=== PATIENT | male | born 1980 | race Caucasian/White ===

== ENCOUNTER 2020-07-19 14:40 | Outpatient (CLI) | payer BC | END 2020-07-19 23:59 | disposition home or self-care (01) | LOC: LAB.R 14:40 | PROVIDERS: ATTEND Physician Assistant Medical | DX: A09 Infectious gastroenteritis and colitis, unspecified (principal) | CPT/HCPCS: 81599; 87045; 87046; 87177; 87209; 87329; 87427 ==

== ENCOUNTER 2022-12-30 13:06 | Inpatient (IN) | payer BC ==
--- NOTE | 2022-12-30 13:16 | ED Physician Documentation ---
PD HPI DYSPNEA - Stated complaint Stated Complaint: SOA - Chief complaint Chief Complaint: Resp - History obtained from History obtained from: Patient - History of Present Illness Timing - onset: How many days ago (3-4) Timing - onset during: Light activity Timing - duration: Days (3-4) Timing - details: Abrupt onset Inciting event(s): Immobilization/travel (He actually had been on a flight from [facility] to [place] with a layover in [facility] about 2 weeks ago. No leg swelling pains or problems immediately after arrival.), Other (he denies any trauma or blunt injury to chest.). No: Out of meds, URI Improved by: Rest Worsened by: Exertion Associated symptoms: Chest pain / discomfort (right chest). No: Fever, Cough, Wheezing, Bilateral edema Similar symptoms before: Has not had sx before Recently seen: Not recently seen Review of Systems Constitutional: denies: Fever, Chills Nose: denies: Rhinorrhea / runny nose, Congestion Throat: denies: Sore throat Cardiac: reports: Chest pain / pressure. denies: Palpitations, Pedal edema Respiratory: reports: Dyspnea. denies: Cough, Hemoptysis, Wheezing GI: denies: Abdominal Pain, Nausea, Vomiting, Diarrhea Skin: denies: Abrasion (s), Laceration (s) PD PAST MEDICAL HISTORY - Past Medical History Cardiovascular: None Respiratory: None Neuro: None Endocrine/Autoimmune: None - Allergies Allergies/Adverse Reactions: Allergies Allergy/AdvReac Type Severity Reaction Status Date / Time No Known Drug Allergies Allergy Verified 12/30/22 13:14 PD ED PE NORMAL - Vitals Vital signs reviewed: Yes - General General: Alert and oriented X 3, No acute distress (He does have purposeful breathing and does appear uncomfortable with deeper breathing but otherwise able to talk in full sentences.), Well developed/nourished - HEENT HEENT: Pharynx benign - Neck Neck: Supple, no meningeal sign, No adenopathy - Cardiac Cardiac: RRR, No murmur - Respiratory Respiratory: No respiratory distress. No: Clear bilaterally (No wheezing or coarse sounds. There is diminished breath sounds on the right. Still present some in the base.) - Abdomen Abdomen: Soft, Non tender - Derm Derm: Normal color, Warm and dry - Extremities Extremities: No edema, No calf tenderness / cord - Neuro Neuro: Alert and oriented X 3, No motor deficit, Normal speech Eye Opening: Spontaneous Motor: Obeys Commands Verbal: Oriented GCS Score: 15 Results - Vitals Vitals: Vital Signs - 24 hr 12/30/22 12/30/22 12/30/22 13:09 13:14 13:44 Temperature 36.8 C 36.8 C Heart Rate 91 91 88 Respiratory 22 22 24 Rate Blood Pressure 157/113 H 157/113 H 120/79 O2 Saturation 99 99 100 12/30/22 12/30/22 12/30/22 14:14 14:30 15:00 Temperature Heart Rate 86 84 72 Respiratory 14 24 22 Rate Blood Pressure 140/92 H 143/94 H 111/86 H O2 Saturation 96 98 100 12/30/22 12/30/22 12/30/22 15:30 16:00 16:30 Temperature 36.5 C Heart Rate 71 67 64 Respiratory 14 12 14 Rate Blood Pressure 135/86 H 129/76 148/88 H O2 Saturation 100 99 100 12/30/22 12/30/22 12/30/22 17:00 17:30 18:00 Temperature 36.5 C Heart Rate 60 56 L 53 L Respiratory 12 12 17 Rate Blood Pressure 144/88 H 139/85 H 116/92 H O2 Saturation 100 99 99 12/30/22 18:30 Temperature Heart Rate 56 L Respiratory 24 Rate Blood Pressure 137/76 H O2 Saturation 99 Oxygen O2 Source Room air - EKG (time done) 13:36 EKG releavant findings:: EKG personally interpreted by author of this note. Relevant findings are: Rate: Rate (enter#) (83) Rhythm: NSR Robbins: Normal Intervals: Normal NM QRS: Normal Ischemia: Normal ST segments. No: ST elevation c/w ischemia, ST depression - Labs Labs: Laboratory Tests 12/30/22 12/30/22 12/30/22 14:00 14:00 14:00 WBC 7.4 RBC 5.18 Hgb 15.9 Hct 46.4 MCV 89.6 MCH 30.7 MCHC 34.3 RDW 12.3 Plt Count 251 MPV 10.7 Neut # (Auto) 4.5 Lymph # (Auto) 1.9 [place] # (Auto) 0.5 Eos # (Auto) 0.4 Baso # (Auto) 0.1 Absolute Nucleated RBC 0.00 Nucleated RBC % 0.0 D-Dimer < 200.0 L Sodium Potassium Chloride Carbon Dioxide Anion Gap BUN Creatinine Estimated GFR (MDRD) Glucose Calcium Total Bilirubin AST ALT Alkaline Phosphatase Troponin I High Sens B-Natriuretic Peptide 13 Total Protein Albumin Globulin Albumin/Globulin Ratio Lipase 12/30/22 12/30/22 14:00 14:00 WBC RBC Hgb Hct MCV MCH MCHC RDW Plt Count MPV Neut # (Auto) Lymph # (Auto) [place] # (Auto) Eos # (Auto) Baso # (Auto) Absolute Nucleated RBC Nucleated RBC % D-Dimer Sodium 140 Potassium 4.0 Chloride 106 Carbon Dioxide 26 Anion Gap 8.0 BUN 15 Creatinine 1.1 Estimated GFR (MDRD) 74 L Glucose 106 H Calcium 9.5 Total Bilirubin 1.2 H AST 23 ALT 21 Alkaline Phosphatase 55 Troponin I High Sens < 2.3 L B-Natriuretic Peptide Total Protein 8.0 Albumin 4.8 Globulin 3.2 Albumin/Globulin Ratio 1.5 Lipase 32 - Rads (name of study) chest xray Relevant Findings:: Prelim report reviewed, EMP independent interpretation of test (Large pneumothorax on the right without any mediastinal shift.), See rad report Procedures - Chest Tube (location) - Major right 5th Chest tube preparation: Consent obtained, Time out completed, Sterile prep and drape Chest tube location: Right, Intercostal space - enter (5), Anterior axillary line Chest tube anesthesia: Lidocaine, Marcaine Chest tube size: 13 Chest tube return: Air, Connected to suction Chest tube after care: Sutured, Confirmed with xray, Pt tolerated well PD Medical Decision Making - ED course Complexity details: considered differential, d/w patient ED course: The patient has had several days of right-sided chest pain and dyspnea. It does seem to be worsening. No injury. No recent cold or flu or cough. He had flown about 1 and half weeks ago from [place] but does not have calf pain or tenderness. We will assess a D-dimer as well as troponin. He does have diminished breath sounds on the right so chest x-ray will be done. This was done and showed a significant pneumothorax. The patient is stable with good saturations and heart rate and blood pressure. Therefore I did consult surgery to give them the first choice on procedure. Dr. Olea was going into the OR and asked that I place a chest tube of small caliber. He will consult on the patient. The chest tube was placed in chest x-ray soon after x-ray showed a good improvement on the pneumothorax already. Subsequently I did contact Dr. Olea again and he was still in the OR and will see the patient. He did ask if the hospitalist service would admit the patient. I checked with the hospitalist and they said it given the health otherwise of the patient that it should be a surgical service patient. We are short on beds for the hospital. We are still awaiting surgical consult in regard to timing of repeat x-ray in stopping suction and etc. I ordered periodic as needed pain medicine and anti-inflammatories. The patient is remaining comfortable. Departure - Departure Clinical Impression: Spontaneous pneumothorax, Dyspnea, Chest pain Condition: Stable Record reviewed to determine appropriate education?: Yes Instructions: ED Pneumothorax Spontaneous
[2022-12-30] MEDS ORDERED: KETOROLAC 15 MG/ML VIAL IVP STA (13:33)
[2022-12-30 14:06] LABS: BASOPHILS # (AUTO) 0.1 10^3/uL (0.0-0.1); BASOPHILS % (AUTO) 1.1 %; EOSINOPHILS # (AUTO) 0.4 10^3/uL (0.0-0.7); EOSINOPHILS % (AUTO) 5.9 %; HCT - HEMATOCRIT 46.4 % (42.0-52.0); HGB - HEMOGLOBIN 15.9 g/dL (14.0-18.0); LYMPHOCYTES # (AUTO) 1.9 10^3/uL (1.5-3.5); LYMPHOCYTES % (AUTO) 25.1 %; MEAN CORPUSCULAR HEMOGLOBIN 30.7 pg (27.0-31.0); MEAN CORPUSCULAR HGB CONC 34.3 g/dL (32.0-36.0); MEAN CORPUSCULAR VOLUME 89.6 fL (80.0-94.0); MEAN PLATELET VOLUME 10.7 fL (7.4-11.4); MONOCYTES # (AUTO) 0.5 10^3/uL (0.0-1.0); NEUTROPHILS # (AUTO) 4.5 10^3/uL (1.5-6.6); NEUTROPHILS % (AUTO) 60.6 %; PLT - PLATELET COUNT 251 10^3/uL (130-450); RED BLOOD COUNT 5.18 10^6/uL (4.70-6.10); RED CELL DISTRIBUTION WIDTH 12.3 % (12.0-15.0); WHITE BLOOD COUNT 7.4 x10^3/uL (4.8-10.8)
[2022-12-30] MEDS ORDERED: HYDROmorphone 1 MG/ML CARPUJECT IVP STA ×2 (14:09→15:24)
--- NOTE | 2022-12-30 14:15 | XRAY Report ---
PROCEDURE: Chest 1 View X-Ray INDICATIONS: Chest Pain right; dyspnea TECHNIQUE: One view of the chest was acquired. COMPARISON: None. FINDINGS: Surgical changes and devices: None. Lungs and pleura: There is a larger pneumothorax in the right hemithorax. The right lung is largely collapsed. No mediastinal shift to suggest development tension. No pleural effusions. Left lung is cl ear clear. Mediastinum: Mediastinal contours appear normal. Heart size is normal. Bones and chest wall: No suspicious bony lesions. Overlying soft tissues appear unremarkable. IMPRESSION: Large right pneumothorax. No evidence for tension at this time. The result was discussed with Dr. Smith in ER. Reviewed by: Charlie Coker MD on 12/30/2022 2:13 PM PDT Approved by: Charlie Coker MD on 12/30/2022 2:13 PM PDT Station ID: [id number]
[2022-12-30 14:24] LABS: ALBUMIN 4.8 g/dL (3.2-5.5); ALBUMIN/GLOBULIN RATIO 1.5 (1.0-2.2); BILIRUBIN,TOTAL 1.2 mg/dL (0.2-1.0); CALCIUM 9.5 mg/dL (8.5-10.3); CREATININE 1.1 mg/dL (0.6-1.2)
--- NOTE | 2022-12-30 15:49 | XRAY Report ---
PROCEDURE: Chest for Line Placement INDICATIONS: post chest tube TECHNIQUE: One view of the chest was acquired. COMPARISON: None. FINDINGS: Surgical changes and devices: Right-sided chest tube projects over the right lung apex. Lungs and pleura: Resolved pneumothorax. Mediastinum: Mediastinal contours appear normal. Heart size is normal. Bones and chest wall: No suspicious bony lesions. Overlying soft tissues appear unremarkable. IMPRESSION: Resolved pneumothorax, status post chest tube placement. Reviewed by: Sherif Shultz on 12/30/2022 3:48 PM PDT Approved by: Sherif Shultz on 12/30/2022 3:48 PM PDT Station ID: [id number]
--- NOTE | 2022-12-30 19:08 | XRAY Report ---
PROCEDURE: Chest 1 View X-Ray INDICATIONS: following PTX TECHNIQUE: One view of the chest was acquired. COMPARISON: Earlier study from the same day. FINDINGS: Surgical changes and devices: Right-sided chest tube is again seen. Lungs and pleura: No gross pneumothorax is seen on the current study. No focal infiltrate. No pleural effusion. Mediastinum: Mediastinal contours appear normal. Heart size is normal. Bones and chest wall: No suspicious bony lesions. Overlying soft tissues appear unremarkable. IMPRESSION: No pneumothorax is seen. Right-sided chest tube in place. Reviewed by: Sebas Castro MD on 12/30/2022 7:07 PM PDT Approved by: Sebas Castro MD on 12/30/2022 7:07 PM PDT Station ID: [id number]
[2022-12-30] MEDS ORDERED: iohexoL-300 100 ML VIAL ONE (21:51)
[2022-12-30] MEDS ORDERED: IBUPROFEN 600 MG TABLET PO SCH (22:00)
[2022-12-30] MEDS ORDERED: iohexoL-300 100 ML VIAL IVP ONE (22:25)
[2022-12-30] MEDS: SODIUM CHLORIDE 0.9% 1,000 ML IV SCH (22:26)
[2022-12-30] MEDS: HYDROmorphone 1 MG/ML CARPUJECT IVP PRN (22:29)
--- NOTE | 2022-12-30 23:58 | CT Report ---
PROCEDURE: CHEST W INDICATIONS: right pneumothorax CONTRAST: 100 ML OMNI 300 TECHNIQUE: After the administration of intravenous contrast, 1 mm axial images were acquired from the pulmonary apices through the posterior costophrenic angles. Axial 5 mm soft tissue kernel reconstructions were performed as well as 8 mm axial MIP and coronal and sagittal 5 mm reformations. For radiation dose reduction, the following was used: automated exposure control, adjustment of mA and/or kV according to patient size. COMPARISON: Prior chest x-ray studies from 12/30/2022. FINDINGS: Image quality: Excellent. Lower Neck: No lymphadenopathy by size criteria. Thyroid: Visualized thyroid demonstrates no discrete nodules. Axillae: No lymphadenopathy by size criteria. Chest Wall: Unremarkable. Bones: Visualized osseous structures demonstrate no suspicious lesions. Lungs and Airways: No acute consolidation. There is bilateral dependent atelectasis. The trachea and central airways are patent. Pleura: A right pleural catheter is demonstrated with the tip extending medially in the right apex. T here is a trace residual right pneumothorax anteriorly in the right lung base. No left pneumothorax. No pleural effusions. Heart: Heart size is normal. No pericardial effusion. Thoracic Vessels: The aorta and pulmonary arteries are normal in size. Mediastinum and Karol: No lymphadenopathy by size criteria. Esophagus: No wall thickening. No hiatal hernia. Upper Abdomen: Unremarkable. IMPRESSION: 1. Trace residual right basilar pneumothorax. 2. Right pleural catheter redemonstrated with the tip demonstrated medially in the right apex. Reviewed by: Mikhail Fisher MD on 12/30/2022 11:57 PM PDT Approved by: Mikhail Fisher MD on 12/30/2022 11:57 PM PDT Station ID: [id number]
[2022-12-31] MEDS: KETOROLAC 15 MG/ML VIAL IVP SCH ×5 (00:06→23:32)
[2022-12-31] MEDS: ACETAMINOPHEN 500 MG TABLET PO SCH ×4 (03:05→22:13)
[2022-12-31] MEDS: HYDROmorphone 1 MG/ML CARPUJECT IVP PRN ×2 (11:15→18:58)
[2022-12-31] MEDS: SODIUM CHLORIDE 0.9% 1,000 ML IV SCH ×2 (11:22→23:22)
--- NOTE | 2022-12-31 14:17 | XRAY Report ---
PROCEDURE: Chest 1 View X-Ray INDICATIONS: chest pain TECHNIQUE: One view of the chest was acquired. COMPARISON: 12/30/2022 FINDINGS: Surgical changes and devices: Right-sided chest tube remains unchanged in positioning with distal ti p projecting near the right apex. Lungs and pleura: No pleural effusions or pneumothorax. Lungs are clear. Mediastinum: Mediastinal contours appear normal. Heart size is normal. Bones and chest wall: No suspicious bony lesions. Overlying soft tissues appear unremarkable. IMPRESSION: Stable positioning of right chest tube. No pneumothorax. No acute cardiopulmonary abnormalities. No f ocal consolidation. Reviewed by: Pietro Lacey MD on 12/31/2022 1:15 PM LISETTE Approved by: Pietro Lacey MD on 12/31/2022 1:15 PM AKTIGRE Station ID: [id number]
[2022-12-31] MEDS ORDERED: SODIUM CHLORIDE FLUSH 0.9% 10 ML SYRINGE IVP PRN (14:33)
--- NOTE | 2022-12-31 14:48 | CONSULTATION NOTE ---
Referring Provider Name of Referring Provider:: Dr Tiburcio Olea Consult Date: 12/31/22 Chief Complaint - Chief Complaint Chief Complaint: Pneumothorax of unclear etiology History of Present Illness - Admitted From Admitted From:: ED - History Obtained From History obtained from: Dr. Olea and the patient - History of Present Illness HPI Comment/Other: This is a 42-year-old male with a negative past medical history, except for neuralgia of the R shoulder several years ago. In March 2022 he contracted COVID. Several months later his children had a URI and then he wrestled with a presumed viral URI in June 2022. 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 He just returned from a vacation in [place] 4 days ago. The following day he did weight lifting which is his normal then 2 days ago he developed shortness of breath and Noticed that he could not complete a full sentence. He presented to the ER last evening when these sx did not resolve. His work-up showed that he had a complete pneumothorax on the right. A chest tube was placed. His resting EKG showed right axis deviation, consistent with a pulmonary problem. Patient denies having COPD or asthma. He has never had a pneumothorax before. He denies any recent trauma. He is tall and rather slende and of muscular build. Patient had repeat chest imaging done that shows trace pneumothorax. He is being admitted on the surgical service for further management of his (presumed spontaneous) pneumothorax. The general surgeon has requested a consult from internal medicine (the Hospitalist team) for help with evaluating for any other cause of a pneumothorax. Dr. Olea, the general surgeon spoke to me about this patient. Patient gave me a detailed description of his right neck nerve problem that happened about 7 years ago. He had slept on a bad mattress in a foreign country and awoke with R neck pain and noticed that his scapula was not moving correctly and then had weakness of the right arm, he could not lift it over his shoulder. After seeing several neurologists and orthopods, he was diagnosed with long thoracic nerve damage. He has kept doing exercises over the years, including weightlifting 3 times a week. He has had repeat nerve testing done a year ago, showing that he has "80% recovery of the muscle controlling the scapula" but "slow conduction time of his long thoracic nerve on that right side, at 1/2 the normal". After he did his weight lifting 3 days ago, he awoke the next morning with pain in that same region near the right scapula, and it was later that day that he developed shortness of breath. History - Past Medical History Cardiovascular: reports: None Respiratory: reports: None Neuro: reports: None Endocrine/Autoimmune: reports: None Musculoskeletal: reports: Other (Neuralgia of the right shoulder, needed PT to recover muscle function of the right) MRSA Hx?: No - Family & Social History Living arrangement: At home Living Situation: With family Meds/Allgy - Home Medications Home Medications: Ambulatory Orders Medication Instructions Recorded Confirmed metroNIDAZOLE 0.75% GEL [Flagyl 45 applic TOP BID 12/31/22 12/31/22 Gel] - Allergies Allergies/Adverse Reactions: Allergies Allergy/AdvReac Type Severity Reaction Status Date / Time No Known Drug Allergies Allergy Verified 12/30/22 13:14 Review of Systems - Respiratory Respiratory: reports: SOB at rest Exam - Vital Signs Vital Signs: Vital Signs x48h Temp Pulse Resp BP Pulse Ox 12/31/22 13:49 62 15 111/71 100 12/31/22 12:03 52 L 13 132/81 H 98 12/31/22 11:00 59 L 11 L 135/84 H 98 12/31/22 10:00 49 L 22 126/70 97 12/31/22 09:26 75 15 126/69 99 12/31/22 08:17 36.7 C 48 L 17 127/67 99 Conclusion/Plan - Problem List (1) Spontaneous pneumothorax Conclusion/Plan: The most common causes of spontaneous pneumothorax are asthma or COPD, malignancy, chest trauma, or barotrauma from diving or airflight. It is also more common in tall slender males. The less common causes are things like cystic fibrosis or congenital thoracic defects, which we know he does not have. He was able to describe details of his long thoracic nerve damage which he has a Hx of, but (per up-to-date), the long thoracic nerves is a pure motor nerve and does not innervate or control anything related to the pleura or intrathoracic area. He does take frequent air flights because of his job, which he just did 4 days ago, exposing him to different ambient pressures recently. In addition, he did do weightlifting 3 days ago. Perhaps the combination of these events added in someway to the pneumothorax. Recommendations: Management of the chest tube as per General Surgeon. I do recommend a good chest imaging test to assure there is no malignancy in that right lung. There is no specific test panel to check for any different causes of the spontaneous pneumothorax. I have no other suggestions for tests at this time. After discharge, I recommend he have a Pulmonary outpatient consultation. I discussed all the above with the patient and the was at bedside. - Lab Results Fish Bones: 12/30/22 14:00 12/30/22 14:00 - Diagnostic Imaging Results Diagnostic Imaging Results: positive: Final report reviewed - Other Other Results/Comments: Thank you for allow me to participate in the care of this patient.
--- NOTE | 2022-12-31 15:49 | XRAY Report ---
PROCEDURE: Chest 1 View X-Ray INDICATIONS: comment of resolution of right pneumothorax TECHNIQUE: One view of the chest was acquired. COMPARISON: Chest radiograph from earlier same day, 12/30/2022, CT dated 12/30/2022. FINDINGS: Surgical changes and devices: Right-sided chest tube remains unchanged in positioning with the dista l tip projecting over the right apex.. Lungs and pleura: No visible pneumothorax by radiographic evaluation. No focal consolidation. No ple ural effusion. Mediastinum: Mediastinal contours appear normal. Heart size is normal. Bones and chest wall: No suspicious bony lesions. Overlying soft tissues appear unremarkable. IMPRESSION: Stable positioning of right-sided chest tube. No evidence for pneumothorax identified radiographically. No acute air space opacities. Reviewed by: Pietro Lacey MD on 12/31/2022 2:47 PM LISETTE Approved by: Pietro Lacey MD on 12/31/2022 2:47 PM LISETTE Station ID: [id number]
[2022-12-31] MEDS: SODIUM CHLORIDE FLUSH 0.9% 10 ML SYRINGE IVP SCH ×2 (16:07→23:33)
--- NOTE | 2022-12-31 21:22 | HISTORY & PHYSICAL EXAMINATION ---
Chief Complaint - Chief Complaint Chief Complaint: Right sided chest pain, dyspnea History of Present Illness - Admitted From Admitted From:: emergency department - History Obtained From Records Reviewed: chart History obtained from: patient - History of Present Illness HPI Comment/Other: This patient is a previously healthy 42-year male who presented to the emergency room with a 24-hour history of progressively severe right-sided chest pain asso ciated with dyspnea. He was initially evaluated by chest x-ray which demonstrated near complete collapse of the right lung, complicated by pneumothorax, without evidence of tension. The emergency room physician inserted a small bore chest tube within the pleural cavity and applied Pleur- evac suction resulting in a near complete reexpansion of the right lung. These events have prompted a surgical consultation. History - Past Medical History Cardiovascular: reports: None Respiratory: reports: None, Pneumonia, Other (COVID) Neuro: reports: None, Peripheral neuropathy Endocrine/Autoimmune: reports: None Musculoskeletal: reports: Other (Neuralgia of the right shoulder, needed PT to recover muscle function of the right) MRSA Hx?: No - Past Surgical History Ortho: reports: Other (repair of traumatic finger injures) Derm: reports: Other (right biceps skin lesion removal) - Family & Social History Family History: Mother: Alive and Well, Father: Alive and Well Living arrangement: At home Living Situation: With family - Substance History Use: Uses substance without health or social issues: NONE Meds/Allgy - Home Medications Home Medications: Ambulatory Orders Medication Instructions Recorded Confirmed metroNIDAZOLE 0.75% GEL [Flagyl 1 applic TOP BID 12/31/22 01/01/23 Gel] - Allergies Allergies/Adverse Reactions: Allergies Allergy/AdvReac Type Severity Reaction Status Date / Time No Known Drug Allergies Allergy Verified 12/30/22 13:14 Exam - Vital Signs Reviewed Vital Signs: Yes Vital Signs: Vital Signs x48h Temp Pulse Pulse Resp BP BP Pulse Ox 12/31/22 17:00 100 12/31/22 15:37 98.1 F 65 20 135/75 H 99 12/31/22 14:59 48 L 21 138/76 H 98 12/31/22 13:49 62 15 111/71 100 O2 Flow Rate 12/31/22 17:00 2 12/31/22 15:37 12/31/22 14:59 12/31/22 13:49 - Physical Exam General Appearance: positive: No acute distress Eyes Bilateral: positive: Normal inspection ENT: positive: No signs of dehydration Respiratory: positive: Chest non-tender, No respiratory distress, Breath sounds nml, Other (The chest wall is symmetrical. There are no rubs, rales, or rhonchi.. A small bore chest tube enters the chest at the the right anterior axillary line at approximately the nipple line; the dressing is unstained and dry.) Cardiovascular: positive: Regular rate & rhythm, No murmur, No gallop Peripheral Pulses: positive: 2+ Abdomen: positive: Non-tender, No organomegaly, Nml bowel sounds, No distention Back: positive: Nml inspection Skin: positive: Color nml, No rash Extremities: positive: Non-tender, Full ROM, Nml appearance, No pedal edema Neurologic/Psychiatric: positive: Oriented x3, CN's nml (2-12), Motor nml, Sensation nml, Mood/affect nml Conclusion/Plan - Problem List (1) Spontaneous pneumothorax Conclusion/Plan: 1. Continue constant Pleur-evac suction. Upon resolution of the patient's minimal air leak, we will place the patient to waterseal 2. Supplemental oxygen to help evolve the concentration of oxygen in any residual pneumothorax to helper shear operator in its resolution 3. Check chest x-ray in the morning and if his lung remains inflated then convert to waterseal 4. Transition from clear liquids to solid food. 5. Consider pulmonology consult to investigate other potential causes of spontaneous pneumothorax in an otherwise healthy male. - Lab Results Fish Bones: 12/30/22 14:00 12/30/22 14:00 - Diagnostic Imaging Results Diagnostic Imaging Results: positive: Final report reviewed
--- NOTE | 2022-12-31 22:05 | PROVIDER PROGRESS NOTE ---
Subjective - General Admit Date: 12/31/22 Procedure Date: 12/30/22 Post Op Days: 1 Procedure Performed: Right chest tube insertion - Review of Systems Wound/Incisions: positive: Dressing dry and intact, No drainage Drain Type: Chest tube Drain Output Description: Scant Pulmonary: positive: No symptoms (Saturating well on room air) Gastrointestinal: positive: No symptoms, Other (Complaining of hunger) Objective - Patient Data Vital Signs: Vital Signs x48h Temp Pulse Pulse Resp BP BP Pulse Ox 12/31/22 17:00 100 12/31/22 15:37 98.1 F 65 20 135/75 H 99 12/31/22 14:59 48 L 21 138/76 H 98 O2 Flow Rate 12/31/22 17:00 2 12/31/22 15:37 12/31/22 14:59 Weight: Weight 12/29/22 12/30/22 12/31/22 23:59 23:59 23:59 Weight (kg) 86.183 kg 86.1 kg Intake & Output: Intake and Output Totals x24h 12/29/22 12/30/22 12/31/22 23:59 23:59 23:59 Intake Total 1200 Output Total 850 Balance 350 - Lab Results Lab Results: 12/30/22 14:00 12/30/22 14:00 - Current Medications Current Medications: Current Medications Generic Name Dose Route Start Last Admin Trade Name Freq PRN Reason Stop Dose Admin Acetaminophen 1,000 mg 12/31/22 03:00 12/31/22 16:06 Acetaminophen 500 Mg Tablet PO 1,000 mg Q6H WENDY Administration Hydromorphone HCl 1 mg 12/30/22 16:56 12/31/22 18:58 Hydromorphone 1 Mg/Ml Carpuject IVP 1 mg Q3H PRN Administration PAIN Sodium Chloride 1,000 mls @ 80 mls/hr 12/30/22 22:00 12/31/22 11:22 Normal Saline 0.9% IV 80 mls/hr .[id number] WENDY Administration Ketorolac Tromethamine 15 mg 12/31/22 00:00 12/31/22 17:00 Ketorolac 15 Mg/Ml Vial IVP 01/05/23 00:00 15 mg Q6HR WENDY Administration Sodium Chloride 10 ml 12/31/22 17:00 12/31/22 16:07 Sodium Chloride Flush 0.9% 10 Ml Syringe IVP 10 ml 0100,0900,1700 [facility] Administration - Physical Exam Respiratory: positive: No respiratory distress, Breath sounds nml, Other (Dressings are clean and well opposed; minimal chest wall tenderness. No palpatory crepitance. No evidence of air leak Pleur-evac container) Impression/Plan - Problem List Problem List: Impression: Mostly resolved pneumothorax Recommendations: 1. Advance diet to solid food 2. Continue supplemental oxygen 3. Place patient to waterseal and repeat chest x-ray; if his lung remains fully expanded then consider removal of chest tube tomorrow morning
[2023-01-01] MEDS: ACETAMINOPHEN 500 MG TABLET PO SCH ×3 (02:47→15:41)
[2023-01-01] MEDS: KETOROLAC 15 MG/ML VIAL IVP SCH ×2 (06:23→12:39)
--- NOTE | 2023-01-01 07:56 | PHARMACY PROGRESS NOTE ---
- Best Possible Medication History Admit Date and Time: 12/31/22 1434 Processed by: Nursing Secondary Source(s): Pharmacy records, Insurance records As the person ultimately responsible for medication therapy, providers are able to order a medication from an existing home medication list in [facility] via the "Reconcile Routine" prior to Confirmation of that medication by technical support manager. Such practice is discouraged except when the physician, in their clinical judgment, deems that a medical need exists for a medication without regard to previous use.
[2023-01-01] MEDS: SODIUM CHLORIDE FLUSH 0.9% 10 ML SYRINGE IVP SCH ×2 (09:33→15:42)
--- NOTE | 2023-01-01 09:56 | XRAY Report ---
PROCEDURE: Chest 1 View X-Ray INDICATIONS: PTX, reassessment TECHNIQUE: One view of the chest was acquired. COMPARISON: Multiple chest radiographs dated 12/31/2022 and 12/30/2022 FINDINGS: Surgical changes and devices: Stable positioning of right chest tube with distal tip projecting near the apex. Lungs and pleura: No focal airspace disease. There is a tiny right apical thorax. No substantial ple ural effusion. Mediastinum: Mediastinal contours appear normal. Heart size is normal. Bones and chest wall: No suspicious bony lesions. Overlying soft tissues appear unremarkable. IMPRESSION: Stable positioning of right chest tube with tiny right apical pneumothorax. Otherwise, no acute cardi opulmonary abnormalities or focal airspace disease. Reviewed by: Pietro Lacey MD on 01/01/2023 8:55 AM LISETTE Approved by: Pietro Lacey MD on 01/01/2023 8:55 AM LISETTE Station ID: [id number]
--- NOTE | 2023-01-01 11:25 | PROVIDER PROGRESS NOTE ---
Subjective - General Admit Date: 12/31/22 Procedure Date: 12/30/22 Post Op Days: 2 Procedure Performed: Right chest tube insertion - Review of Systems Wound/Incisions: positive: Dressing dry and intact, No drainage Drain Type: Chest tube Drain Output Description: Scant Pulmonary: positive: No symptoms (Saturating well on room air) Gastrointestinal: positive: No symptoms, Other (Complaining of hunger) - Other Other Information/Narrative: Patient tolerating diet. No n/v. No f/c. Using IS. Ambulating in and out of room. Breathing without difficulty. Complains of discomfort only at chest tube insertion site. He is concerned about his risk for having another pneumothorax in the future, but otherwise has not questions or concerns this morning. Objective - Patient Data Vital Signs: Vital Signs x48h Temp Pulse Resp BP Pulse Ox O2 Flow Rate 01/01/23 08:35 36.4 C L 60 16 124/83 H 99 2 Weight: Weight 12/30/22 12/31/22 01/01/23 23:59 23:59 23:59 Weight (kg) 86.183 kg 86.1 kg Intake & Output: Intake and Output Totals x24h 12/30/22 12/31/22 01/01/23 23:59 23:59 23:59 Intake Total 2860 480 Output Total 975 1150 Balance 1885 -670 - Lab Results Lab Results: 12/30/22 14:00 12/30/22 14:00 - Imaging Results Radiology Imaging: positive: Final report received Imaging Results Comments: I reviewed the images and report from the patient's previous imaging and CXR this AM. Trace residual R PTX. Stable from prior study. - Current Medications Current Medications: Current Medications Generic Name Dose Route Start Last Admin Trade Name Freq PRN Reason Stop Dose Admin Acetaminophen 1,000 mg 12/31/22 03:00 01/01/23 08:25 Acetaminophen 500 Mg Tablet PO 1,000 mg Q6H WENDY Administration Sodium Chloride 1,000 mls @ 80 mls/hr 12/30/22 22:00 12/31/22 23:22 Normal Saline 0.9% IV 80 mls/hr .[id number] WENDY Administration Ketorolac Tromethamine 15 mg 12/31/22 00:00 01/01/23 06:23 Ketorolac 15 Mg/Ml Vial IVP 01/05/23 00:00 15 mg Q6HR WENDY Administration Sodium Chloride 10 ml 12/31/22 17:00 01/01/23 09:33 Sodium Chloride Flush 0.9% 10 Ml Syringe IVP Not Given 0100,0900,1700 WENDY - Physical Exam Wound/Incisions: positive: Dressing dry and intact, No drainage General Appearance: positive: No acute distress, Alert Eyes Bilateral: positive: Normal inspection, EOMI ENT: positive: No signs of dehydration Neck: positive: Trachea midline Respiratory: positive: No respiratory distress, Breath sounds nml, Other (R CT in place, to water seal. No air leak with conversation or cough.) Cardiovascular: positive: Regular rate & rhythm Abdomen: positive: Non-tender, No distention. negative: Guarding, Rebound Skin: positive: Color nml Extremities: positive: Non-tender Neurologic/Psychiatric: positive: Oriented x3, CN's nml (2-12) Impression/Plan - Problem List Problem List: 42 y/o M with: 1. Primary R PTX - This is the patient's first occurrence. Underlying etiology remains cryptogenic (patient was doing weight lifting prior to onset of symptoms; this is not an abnormal activity for the patient). No family history of connective tissue or lung disease. - Lung appears healthy on chest CT, no blebs - CXR this AM demonstrates near total resolution of PTX. No air leak on water seal. Chest tube removed this AM. - Plan for repeat CXR this afternoon. If stable, possible discharge to home later today. - Recommend outpatient f/u with pulmonology. DVT ppx: patient ambulatory Possible discharge later today or in AM.
--- NOTE | 2023-01-01 17:07 | Discharge Plan ---
Discharge Plan Problem Reviewed?: Yes Disposition: Home, Self Care Condition: Good Diet: Regular Activity Restrictions: Activity as Tolerated (avoid any activities requiring heaving straining for 10 days) Shower Restrictions: No (ok to remove dressing tomorrow (01/02) AM) Driving Restrictions: No Weight Bearing: Full Weight Instruction Topics: ED Pneumothorax Spontaneous Plan of Treatment: Pneumothorax resolved Additional Instructions or Follow Up instructions: patient to f/u with PCP to discuss consultation with pulmonology to r/o uncommon underlying cause of pneumothorax. No known family history of lung or connective tissue disease. No Smoking: If you smoke, Please STOP! Call for help. Follow-up with: Rosa Alvarez ARNP, LMW [Physician No Access] -
--- NOTE | 2023-01-01 17:11 | XRAY Report ---
PROCEDURE: Chest 1 View X-Ray INDICATIONS: timed f/u after tube removal, do at 1700 TECHNIQUE: One view of the chest was acquired. COMPARISON: 01/01/2023, 12/31/2022, and 12/30/2022. FINDINGS: Surgical changes and devices: There is interval removal of patient's known right-sided chest tube. Lungs and pleura: Small right apical pneumothorax is noted and measures up to 1.3 cm in craniocaudal dimension compared to 6 mm in size on earlier study. Rest of bilateral lung sow are clear. Mediastinum: Mediastinal contours appear normal. Heart size is normal. Bones and chest wall: No suspicious bony lesions. Overlying soft tissues appear unremarkable. IMPRESSION: Interval removal of right-sided chest tube with interval slight increase in size of patient's known r ight apical pneumothorax as above. Reviewed by: Sebas Castro MD on 01/01/2023 5:10 PM PDT Approved by: Sebas Castro MD on 01/01/2023 5:10 PM PDT Station ID: [id number]
--- NOTE | 2023-01-01 17:15 | DISCHARGE SUMMARY ---
"Discharge Summary Admit Date: 12/30/22 Discharge Date: 01/01/23 Discharging Provider: Dr. Elza Vazquez Primary Care Provider: Rosa Alvarez NP Code Status: Attempt Resuscitation Condition at Discharge: Good Discharge Disposition: 01 Home, Self Care - DIAGNOSES Admission Diagnoses: Primary pneumothorax Discharge Diagnoses with Status of Each Condition: primary pneumothorax, resolved - HPI History of Present Illness: This patient is a previously healthy 42-year male who presented to the emergency room with a 24-hour history of progressively severe right-sided chest pain associated with dyspnea. He was initially evaluated by chest x-ray which demonstrated near complete collapse of the right lung, complicated by pneumothorax, without evidence of tension. The emergency room physician inserted a small bore chest tube within the pleural cavity and applied Pleur- evac suction resulting in a near complete reexpansion of the right lung. For management of the chest tube and work up of the pnuemothorax, the patient was admitted. - CONSULTS | PROCEDURES Consultations: medicine Procedures: chest tube placement in the ED - HOSPITAL COURSE Hospital Course: The patient was admitted. His chest tube was placed to water seal on HD#2, which he tolerated well without recurrence of symptoms. Chest CT shows healthy lungs without underlying disease to explain his pneumothorax. Most likely, he had an extreme positive pressure within his lung with weight lifting. On HD#3, his CXR was stable and the chest tube was removed. Repeat CXR 6 hours later, again shows no significant increase in the trace pneumothorax. He is requiring no pain medication, vitals are stable and he is on RA. He is tolerating a regular diet. At this time he is appropriate for discharge to home. - ALLERGIES Allergies/Adverse Reactions: Allergies Allergy/AdvReac Type Severity Reaction Status Date / Time No Known Drug Allergies Allergy Verified 12/30/22 13:14 - MEDICATIONS Home Medications: Ambulatory Orders Medication Instructions Recorded Confirmed metroNIDAZOLE 0.75% GEL [Flagyl 1 applic TOP BID 12/31/22 01/01/23 Gel] Acetaminophen [Tylenol] 1,000 mg PO Q6H tab 01/01/23 - PHYSICAL EXAM AT DISCHARGE General Appearance: positive: No acute distress, Alert Eyes Bilateral: positive: Normal inspection, EOMI ENT: positive: No signs of dehydration Respiratory: positive: Chest non-tender (except at CT insertion site) Cardiovascular: positive: Regular rate & rhythm Peripheral Pulses: positive: 2+ Abdomen: positive: Non-tender Skin: positive: Color nml Extremities: positive: Full ROM Neurologic/Psychiatric: positive: Oriented x3, CN's nml (2-12) - LABS Result Diagrams: 12/30/22 14:00 12/30/22 14:00 - DIAGNOSTIC IMAGING Diagnostic Imaging Results: Final report reviewed, Read independently - QUALITY (Female Hip Fx Only) Was patient sent home on osteoporosis medication?: No - FOLLOW UP Follow Up: PCP in 1-2 weeks, consider pulmonology referral - TIME SPENT Time Spent in Discharge (Minutes): 25"
[2023-01-01 17:45] VITALS: BP 130/76
== END 2023-01-01 17:40 | disposition home or self-care (01) | DRG 201 ==
LOC: ED 13:06 → ICU 12-31 14:34 → MS2 12-31 15:33
PROVIDERS: ADMIT Surgery; ATTEND Surgery
PROC: 0W9930Z Drainage of Right Pleural Cavity with Drainage Device, Percutaneous Approach (ICD-10-PCS; principal; 2022-12-30)
DX: J93.11 Primary spontaneous pneumothorax (principal); Z86.16 Personal history of COVID-19
CPT/HCPCS: 32551; 36415; 71045; 71260; 80053; 83690; 83880; 84484; 85025; 85379; 93005; 96374; 96375; 96376; 99284; 99285; A9270; J1170; Q9967

== ENCOUNTER 2023-01-24 09:45 | Inpatient (IN) | payer BC ==
[2023-01-24] MEDS ORDERED: fentaNYL 100 MCG/2 ML VIAL IVP STA (10:39)
[2023-01-24] MEDS ORDERED: MIDAZOLAM 2 MG/2 ML VIAL IVP STA (10:39)
[2023-01-24] MEDS ORDERED: LIDOCAINE 1%-EPI 1:100000 10 ML MDV SUBQ STA (10:40)
[2023-01-24] MEDS: LIDOCAINE 1%-EPI 1:100000 20 ML MDV SUBQ STA ×2 (10:52→10:54)
[2023-01-24 10:55] LABS: BASOPHILS # (AUTO) 0.1 10^3/uL (0.0-0.1); BASOPHILS % (AUTO) 0.9 %; EOSINOPHILS # (AUTO) 0.2 10^3/uL (0.0-0.7); EOSINOPHILS % (AUTO) 3.8 %; HCT - HEMATOCRIT 45.1 % (42.0-52.0); HGB - HEMOGLOBIN 15.3 g/dL (14.0-18.0); LYMPHOCYTES # (AUTO) 1.8 10^3/uL (1.5-3.5); LYMPHOCYTES % (AUTO) 33.4 %; MEAN CORPUSCULAR HEMOGLOBIN 30.7 pg (27.0-31.0); MEAN CORPUSCULAR HGB CONC 33.9 g/dL (32.0-36.0); MEAN CORPUSCULAR VOLUME 90.6 fL (80.0-94.0); MEAN PLATELET VOLUME 10.4 fL (7.4-11.4); MONOCYTES # (AUTO) 0.4 10^3/uL (0.0-1.0); MONOCYTES % (AUTO) 7.7 %; NEUTROPHILS # (AUTO) 2.9 10^3/uL (1.5-6.6); PLT - PLATELET COUNT 236 10^3/uL (130-450); RED BLOOD COUNT 4.98 10^6/uL (4.70-6.10); WHITE BLOOD COUNT 5.3 x10^3/uL (4.8-10.8)
[2023-01-24 10:58] LABS: VBG PCO2 49.8 mmHg (41-51); VBG PH 7.369 (7.31-7.41); VBG PO2 48.5 mmHg (25-47)
[2023-01-24 10:59] LABS: VBG BASE EXCESS 1.8 mmol/L (-2 - +2); VBG HCO3 28.1 mmol/L (23-28); VBG OXYGEN SATURATION 85.1 % (60-80); VBG TOTAL CO2 29.6 mmol/L (24-29)
[2023-01-24 11:02] LABS: INR 1.1 (0.8-1.2); PT - PROTHROMBIN TIME 12.5 secs (9.9-12.6)
[2023-01-24 11:11] LABS: ALBUMIN 4.9 g/dL (3.2-5.5); ALBUMIN/GLOBULIN RATIO 1.8 (1.0-2.2); BILIRUBIN,TOTAL 0.6 mg/dL (0.2-1.0); CALCIUM 9.8 mg/dL (8.5-10.3); CREATININE 1.2 mg/dL (0.6-1.3); POTASSIUM 4.5 mmol/L (3.5-4.5); TOTAL PROTEIN 7.6 g/dL (6.4-8.9)
--- NOTE | 2023-01-24 11:11 | XRAY Report ---
PROCEDURE: Chest 1 View X-Ray INDICATIONS: SOA, hx of pneumo TECHNIQUE: One view of the chest was acquired. COMPARISON: Chest x-ray 01/01/2023 FINDINGS: Surgical changes and devices: None. Lungs and pleura: Significantly increased size of right-sided pneumothorax, now moderate to severe. No focal pulmonary consolidations. No pleural effusions. Mediastinum: Mediastinal contours appear normal. Heart size is normal. Bones and chest wall: No suspicious bony lesions. Overlying soft tissues appear unremarkable. IMPRESSION: Significantly increased size of right-sided pneumothorax. No significant mediastinal shift. Patient's physician, Dr. Maradiaga, was notified by the technologist. Reviewed by: Randolph King MD on 01/24/2023 11:10 AM PDT Approved by: Randolph King MD on 01/24/2023 11:10 AM PDT Station ID: [id number]
[2023-01-24] MEDS ORDERED: PROPOFOL 200 MG/20 ML VIAL IVP ONE (11:24)
[2023-01-24] MEDS ORDERED: HYDROmorphone 1 MG/ML CARPUJECT ONE ×2 (11:45)
[2023-01-24] MEDS ORDERED: HYDROmorphone 2 MG/ML VIAL IVP STA (11:57)
[2023-01-24] MEDS ORDERED: LIDOCAINE 1%-EPI 1:100000 20 ML MDV SUBQ STA (12:00)
--- NOTE | 2023-01-24 12:12 | XRAY Report ---
PROCEDURE: Chest for Line Placement INDICATIONS: CHEST TUBE PLACEMENT TECHNIQUE: One view of the chest was acquired. COMPARISON: Chest x-ray 01/24/2023 FINDINGS: Surgical changes and devices: Interval placement of right sided chest tube. Lungs and pleura: Significant decreased size of right pneumothorax with no residual pneumothorax radha ntified. Low lung volumes. No pleural effusion. Mediastinum: Mediastinal contours appear normal. Heart size is normal. Bones and chest wall: No suspicious bony lesions. Subcutaneous emphysema within the right lateral ch est wall. Overlying soft tissues appear unremarkable. IMPRESSION: Interval placement of right-sided chest tube with resolution of pneumothorax. No significant residual pneumothorax is identified. Reviewed by: Randolph King MD on 01/24/2023 12:11 PM PDT Approved by: Randolph King MD on 01/24/2023 12:11 PM PDT Station ID: [id number]
[2023-01-24] MEDS ORDERED: SODIUM CHLORIDE FLUSH 0.9% 10 ML SYRINGE IVP PRN (12:39)
[2023-01-24] MEDS ORDERED: ONDANSETRON 4 MG/2 ML VIAL IVP PRN (12:39)
--- NOTE | 2023-01-24 12:40 | ED Physician Documentation ---
History of Present Illness - Stated complaint Stated Complaint: SOA/COUGH/RIB PX - Chief complaint Chief Complaint: Resp - Additonal information Additional information: Patient is a 42-year-old male with past medical significant for spontaneous pneumothorax presenting to the emergency department with chest pain, shortness of breath. Symptoms began acutely last night. Hospitalized 3 weeks ago for chest tube placement after spontaneous pneumothorax that occurred after vigorous exercise at the gym Review of Systems Constitutional: denies: Fever Eyes: denies: Loss of vision Ears: denies: Loss of hearing Nose: denies: Rhinorrhea / runny nose Throat: denies: Dental pain / toothache Cardiac: reports: Chest pain / pressure Respiratory: reports: Dyspnea GI: denies: Abdominal Pain : denies: Dysuria PD PAST MEDICAL HISTORY - Past Medical History Cardiovascular: None Respiratory: None, Pneumonia, Other (COVID) Neuro: None, Peripheral neuropathy Endocrine/Autoimmune: None Musculoskeletal: Other (Neuralgia of the right shoulder, needed PT to recover muscle function of the right) - Past Surgical History Past Surgical History: No Ortho: Other (repair of traumatic finger injures) Derm: Other (right biceps skin lesion removal) - Present Medications Home Medications: Ambulatory Orders Medication Instructions Recorded Confirmed metroNIDAZOLE 0.75% GEL [Flagyl 1 applic TOP DAILY 12/31/22 01/24/23 Gel] Acetaminophen [Tylenol] 2 tab PO Q6HR PRN 01/24/23 01/24/23 Ibuprofen [Motrin] 600 mg PO TIDWM #60 tab 01/27/23 methocarbamoL [Robaxin] 500 mg PO Q6HR PRN #60 tab 01/27/23 oxyCODONE [Roxicodone] 5 mg PO Q4HR PRN #15 tab 01/27/23 - Allergies Allergies/Adverse Reactions: Allergies Allergy/AdvReac Type Severity Reaction Status Date / Time No Known Drug Allergies Allergy Verified 01/24/23 10:09 - Social History Does the pt smoke?: No Smoking Status: Never smoker Does the pt have substance abuse?: No - Immunizations Immunizations are current?: No PD ED PE NORMAL - Vitals Vital signs reviewed: Yes - General General: Alert and oriented X 3, No acute distress, Well developed/nourished - HEENT HEENT: Atraumatic, Pharynx benign - Neck Neck: Supple, no meningeal sign - Cardiac Cardiac: RRR, No gallop, Strong equal pulses - Respiratory Respiratory: Other (Absent Rt breath sounds) - Abdomen Abdomen: Normal bowel sounds, Soft, Non tender - Male Male : Deferred - Rectal Rectal: Deferred Results - Vitals Vitals: Oxygen O2 Source Nasal cannula Oxygen Flow Rate 10 - Labs Labs: Laboratory Tests 01/24/23 01/24/23 01/24/23 10:49 10:49 10:49 WBC 5.3 RBC 4.98 Hgb 15.3 Hct 45.1 MCV 90.6 MCH 30.7 MCHC 33.9 RDW 12.0 Plt Count 236 MPV 10.4 Neut # (Auto) 2.9 Lymph # (Auto) 1.8 Gage # (Auto) 0.4 Eos # (Auto) 0.2 Baso # (Auto) 0.1 Absolute Nucleated RBC 0.00 Nucleated RBC % 0.0 PT 12.5 INR 1.1 VBG pH VBG pCO2 VBG pO2 VBG HCO3 VBG Total CO2 VBG O2 Saturation VBG Base Excess Sodium 138 Potassium 4.5 Chloride 105 Carbon Dioxide 31 Anion Gap 2.0 L BUN 16 Creatinine 1.2 Estimated GFR (MDRD) 67 L Glucose 103 Calcium 9.8 Total Bilirubin 0.6 AST 18 ALT 16 Alkaline Phosphatase 67 Total Protein 7.6 Albumin 4.9 Globulin 2.7 Albumin/Globulin Ratio 1.8 Lipase 27 01/24/23 10:49 WBC RBC Hgb Hct MCV MCH MCHC RDW Plt Count MPV Neut # (Auto) Lymph # (Auto) Gage # (Auto) Eos # (Auto) Baso # (Auto) Absolute Nucleated RBC Nucleated RBC % PT INR VBG pH 7.369 VBG pCO2 49.8 VBG pO2 48.5 H VBG HCO3 28.1 H VBG Total CO2 29.6 H VBG O2 Saturation 85.1 H VBG Base Excess 1.8 Sodium Potassium Chloride Carbon Dioxide Anion Gap BUN Creatinine Estimated GFR (MDRD) Glucose Calcium Total Bilirubin AST ALT Alkaline Phosphatase Total Protein Albumin Globulin Albumin/Globulin Ratio Lipase Procedures - Chest Tube (location) - Major right 4th anterior axillary line Chest tube preparation: Consent obtained Chest tube location: Right Chest tube anesthesia: Lidocaine, CC (enter) (30) Chest tube size: 32 Chest tube return: Air Chest tube after care: Sutured, Confirmed with xray - Procedural sedation Sedation prep: Informed consent, Last meal, ASA 1 - healthy, IV O2 monitor, ET CO2 monitor, RT present Sedation Medications: propofol Mallampati classification: I Patient status during sedation: Drowsy Sedation recovery: Back to baseline Time in sedation (Minutes): 10 PD Medical Decision Making - ED course Complexity details: reviewed results, considered differential, d/w patient, d/w [employer] identity management consultant ED course: Patient is a 42-year-old male presenting to the emergency department with recurrent spontaneous right-sided pneumothorax. Afebrile, hemodynamically stable on arrival to the emergency department with no indications of acute tension pneumothorax. X-ray initially obtained while patient in waiting room however after pneumothorax identified immediately roomed and placed on monitor. Started on supplemental oxygen via nonrebreather. Physical exam demonstrated an otherwise healthy and well-appearing 42-year-old male with absent breath sounds on the right side of his lung. Procedural consent was obtained for right-sided chest tube placement. Risks and benefits discussed prior to initiating the procedure. Patient did report that during his initial chest to get experienced a modest amount of discomfort. Discussed need for possible procedural sedation and he gave verbal consent that if it became necessary to provide procedural sedation we would but that we would initiate the procedure with local anesthetic as well as small doses of fentanyl and Versed for pain control and anoxyolisis. Despite 30 cc of locally infiltrated lidocaine patient continued to have a significant amount of pain discomfort during chest tube placement and was given doses of propofol for procedural sedation. Specifically given multiple boluses, 50 mg, 50 mg, 25 mg, 25 mg, 50 mg. Initially attempted to place 28 Cymraes however this was inappropriately inserted initially and second attempt was made with a 32 Cymraes tube. Repeat chest x-ray demonstrated resolution of his pneumothorax. Care was discussed with Dr. Diaz, general surgery who graciously agrees to hospitalize the patient for further evaluation and treatment. Departure - Departure Disposition: 66 [facility] DC/Xfer Clinical Impression: Pneumothorax Qualifiers: Pneumothorax type: spontaneous, primary Qualified Code(s): J93.11 - Primary spontaneous pneumothorax Condition: Good Discharge Date/Time: 01/24/23 13:26
[2023-01-24] MEDS ORDERED: PROPOFOL 200 MG/20 ML VIAL IVP STA (12:45)
[2023-01-24] MEDS ORDERED: HYDROmorphone 1 MG/ML CARPUJECT IVP STA (12:45)
--- NOTE | 2023-01-24 12:57 | HISTORY & PHYSICAL EXAMINATION ---
Chief Complaint - Chief Complaint Chief Complaint: Right chest pain History of Present Illness - Admitted From Admitted From:: ED - History of Present Illness HPI Comment/Other: Jacques is a 42 male who presents to the ED with the sudden onset of SOB and right chest pain earlier this morning. A CXR identified a recurrent right pneumothorax. A 32F chest tube was inserted into the right dylan by [facility] ED staff and I was requested to admit the patient to my service for pain control and chest tube management. Jacques suffered his first right spontaneous pneumothorax 2 weeks ago and this was treated with a pleural catheter. He was discharged after resolution of the pneumothorax and saw a field rep (Emmanuel Tinajero MD, from [facility] [phone]) who recommended that he see a Thoracic Surgeon for a VATS procedure. Jacques has not had time to make those arrangements and would like a recommendation for a Thoracic Surgeon from Dr. Tinajero. At the time of my evaluation, Jacques was comfortable but still having pleuritic right chest pain with inspiration. History - Past Medical History Cardiovascular: reports: None (Right spontaneous pneumotorax December 2022.) Respiratory: reports: None, Pneumonia, Other (COVID) Neuro: reports: None, Peripheral neuropathy Endocrine/Autoimmune: reports: None Musculoskeletal: reports: Other (Neuralgia of the right shoulder, needed PT to recover muscle function of the right) MRSA Hx?: No - Past Surgical History Ortho: reports: Other (repair of traumatic finger injures) Derm: reports: Other (right biceps skin lesion removal) - Family & Social History Family History: Mother: Alive and Well, Father: Alive and Well Living Situation: With family - Substance History Use: Uses substance without health or social issues: NONE - POLST Patient has POLST: Yes POLST Status: Full Code Meds/Allgy - Home Medications Home Medications: Ambulatory Orders Medication Instructions Recorded Confirmed metroNIDAZOLE 0.75% GEL [Flagyl 1 applic TOP BID 12/31/22 01/01/23 Gel] Acetaminophen [Tylenol] 1,000 mg PO Q6H tab 01/01/23 - Allergies Allergies/Adverse Reactions: Allergies Allergy/AdvReac Type Severity Reaction Status Date / Time No Known Drug Allergies Allergy Verified 01/24/23 10:09 Review of Systems - Respiratory Respiratory: reports: SOB at rest, Pleuritic pain Exam - Vital Signs Reviewed Vital Signs: Yes Vital Signs: Vital Signs x48h Temp Pulse Resp BP Pulse Ox O2 Flow Rate 01/24/23 12:30 72 27 H 132/85 H 100 2 01/24/23 12:24 70 14 126/79 99 2 01/24/23 12:17 78 17 01/24/23 12:14 80 20 122/77 100 10 01/24/23 12:00 78 18 120/81 H 100 15 01/24/23 11:42 76 30 H 135/75 H 100 15 01/24/23 11:33 70 28 H 147/75 H 100 15 01/24/23 11:27 77 15 138/71 H 100 15 01/24/23 11:09 75 22 137/89 H 100 15 01/24/23 10:58 78 22 137/89 H 100 10 01/24/23 10:54 71 17 134/90 H 100 10 01/24/23 10:39 64 19 134/90 H 100 15 01/24/23 10:01 98.2 F 83 18 136/81 H 99 - Physical Exam General Appearance: positive: No acute distress Eyes Bilateral: positive: Normal inspection ENT: positive: ENT inspection nml, Pharynx nml Neck: positive: Nml inspection, Thyroid nml, No JVD, Trachea midline Respiratory: positive: Chest non-tender, No respiratory distress, Breath sounds nml, Other (32F CT in right lateral chest wall, connceted to dry-vac with evidence of an air leak on 20 cm wall suction) Cardiovascular: positive: Regular rate & rhythm Abdomen: positive: Non-tender, No organomegaly, Nml bowel sounds Skin: positive: Color nml, No rash, Warm Extremities: positive: Non-tender, Full ROM Conclusion/Plan - Lab Results Fish Bones: 01/24/23 10:49 01/24/23 10:49 - Other Other Results/Comments: Images: CXR - Right chest tube in good position with resolution of right pneumothorax Assessment: 1) Recurrent right spontaneous pneumothorax - resolved with chest tube. He will need a VATS procedure as he is now at high risk for recurrence. Plan: 1) Multimodality pain control 2) CT management 3) CXR in am 4) Arrange for Thoracic Surgery to see as out-patient. Will need to determine if they want him discharged with a Heimlich valve. Feliberto Diaz MD General Surgery Service
[2023-01-24] MEDS ORDERED: LACTATED RINGERS 1,000 ML IV SCH (13:00)
[2023-01-24] MEDS ORDERED: ACETAMINOPHEN 325 MG TABLET PO SCH (13:00)
[2023-01-24] MEDS: ACETAMINOPHEN 500 MG TABLET PO SCH ×2 (13:37→18:59)
[2023-01-24] MEDS: oxyCODONE 5 MG TABLET PO PRN ×3 (13:50→22:07)
[2023-01-24] MEDS: IBUPROFEN 600 MG TABLET PO SCH ×2 (13:52→22:07)
--- NOTE | 2023-01-24 14:30 | PHARMACY PROGRESS NOTE ---
- Best Possible Medication History Admit Date and Time: 01/24/23 1239 Processed by: Pharmacy Medication History completed: Yes Patient Interview: Completed Secondary Source(s): Spouse/Significant other, Pharmacy records As the person ultimately responsible for medication therapy, providers are able to order a medication from an existing home medication list in [facility] via the "Reconcile Routine" prior to Confirmation of that medication by field technical support consultant. Such practice is discouraged except when the physician, in their clinical judgment, deems that a medical need exists for a medication without regard to previous use.
[2023-01-24] MEDS ORDERED: polyethylene glycoL 3350 17 GM PACKET PO PRN (14:36)
[2023-01-24] MEDS: SODIUM CHLORIDE FLUSH 0.9% 10 ML SYRINGE IVP SCH (17:56)
[2023-01-24] MEDS: HYDROmorphone 0.5 MG/0.5 ML SYRINGE IVP PRN ×2 (17:58→19:55)
--- NOTE | 2023-01-24 18:31 | PROVIDER PROGRESS NOTE ---
Progress Note General Surgery Progress Note I spoke with a Thoracic Surgeon from and we decided to place Mr. Smith in the transfer queue so that if a bed opens, he will be accepted in transfer with the intent to offer surgery as early as next week. If his air leak seals and he would prefer to go home, that too is an option. He would just have to be seen in the Thoracic Surgery office first to schedule a mutually convenient date for the VATS procedure. This information will be relayed to Mr. Smith during my next rounds session. Feliberto Diaz MD General Surgery Service
[2023-01-25] MEDS: ACETAMINOPHEN 500 MG TABLET PO SCH ×2 (00:47→08:35)
[2023-01-25] MEDS: SODIUM CHLORIDE FLUSH 0.9% 10 ML SYRINGE IVP SCH ×3 (00:47→16:10)
[2023-01-25] MEDS: oxyCODONE 5 MG TABLET PO PRN ×5 (01:58→20:27)
[2023-01-25] MEDS: IBUPROFEN 600 MG TABLET PO SCH ×3 (06:55→20:27)
--- NOTE | 2023-01-25 07:19 | PROVIDER PROGRESS NOTE ---
Progress Note General Surgery Progress Note S: Jacques has had mild discomfort at the chest tube insertion site and in his back. He can sometimes hear the air leaking in his chest O: VSS, afeb; Lungs clear; CT pleuravac to -20 wall suction. The leak persists but seems less than yesterday A: Recurrent right spontaneous pneumothorax with continued air leak. On transfer queue to Thoracic Surgery at . P: CXR today; Continue as ordered until transferred. Feliberto Diaz MD General Surgery Service
--- NOTE | 2023-01-25 11:58 | XRAY Report ---
PROCEDURE: Chest 1 View X-Ray INDICATIONS: FU right pneumothorax TECHNIQUE: One view of the chest was acquired. COMPARISON: Chest x-ray, 01/24/2023. FINDINGS: Surgical changes and devices: There is a chest tube on the right. Lungs and pleura: Small residual right pneumothorax. No pleural effusions. Lungs are clear. Mediastinum: Mediastinal contours appear normal. Heart size is normal. Bones and chest wall: No suspicious bony lesions. Overlying soft tissues appear unremarkable. IMPRESSION: No tube on the right side. Small residual right pneumothorax is present. No tension pneumothorax. Reviewed by: Charlie Coker MD on 01/25/2023 11:57 AM PDT Approved by: Charlie Coker MD on 01/25/2023 11:57 AM PDT Station ID: [id number]
[2023-01-25] MEDS: HYDROmorphone 0.5 MG/0.5 ML SYRINGE IVP PRN ×2 (16:10→20:25)
--- NOTE | 2023-01-25 16:47 | PROVIDER PROGRESS NOTE ---
Progress Note General Surgery Progress Note Jacques has had a better day. He still has right chest pain and can feel air bubbling in his chest when he sits up. There is some drainage about the chest tube that is of concern to him. he also complains of back muscle spasms near the right scapula. On exam he is AAO and in no distress. Lungs are clear and he has minimal air leak when supine but it increases when he changes his position from sitting to standing. He was placed on -30 cm water seal earlier today when I saw that his CXR revealed a persistent small apical pneumothorax. I changed the CT dressing this afternoon. Drainage was minimal and there is no evidence of an air leak about the CT skin entry site. Jacques remains in line for transfer to Thoracic Surgery. I completed the transfer paperwork today and recommended that we start a muscle relaxant for his back spasms while we continue CT pleuravac drainage. Feliberto Diaz MD General Surgery Service
[2023-01-25] MEDS: methocarbamoL 500 MG TABLET PO PRN (17:58)
[2023-01-26] MEDS: SODIUM CHLORIDE FLUSH 0.9% 10 ML SYRINGE IVP SCH ×3 (00:01→16:32)
[2023-01-26] MEDS: methocarbamoL 500 MG TABLET PO PRN (00:14)
[2023-01-26] MEDS: HYDROmorphone 0.5 MG/0.5 ML SYRINGE IVP PRN (00:14)
[2023-01-26] MEDS: oxyCODONE 5 MG TABLET PO PRN ×2 (01:41→08:03)
--- NOTE | 2023-01-26 07:42 | PROVIDER PROGRESS NOTE ---
Progress Note General Surgery Progress Note S: Minimal chest wall discomfort. No SOB. Has ambulated; Eating well; No BM yet O: VSS, afeb; Lungs clear; CT well secured and he continues to have a small air leak with movement A: Recurrent spontaneous right pneumothorax with persistent air leak - otherwise stable P: Awaiting transfer to Thoracic surgery for VATS once a bed is available Feliberto Diaz MD General Surgery Service
[2023-01-26] MEDS: ACETAMINOPHEN 325 MG TABLET PO SCH ×3 (08:00→20:39)
[2023-01-26] MEDS: IBUPROFEN 600 MG TABLET PO SCH ×3 (08:00→16:32)
[2023-01-26 16:02] VITALS: O2SAT 97
--- NOTE | 2023-01-26 19:20 | PROVIDER PROGRESS NOTE ---
Progress Note General Surgery PM Progress Note Jacques is doing well. He is in good spirits despite the wait to be transferred. He had a bowel motion today. The pleuravac continues to have a small leak made worse with position changes. There is scant seepage on the dressing. I'll call the transfer center tomorrow. Another option would be to discharge him with a Heimlich valve but I would need to be certain he had a Thoracic Surgery Clinic follow-up arranged BETITO. Feliberto Diaz MD General surgery Service
[2023-01-27] MEDS: ACETAMINOPHEN 325 MG TABLET PO SCH ×2 (02:08→07:46)
[2023-01-27] MEDS: HYDROmorphone 0.5 MG/0.5 ML SYRINGE IVP PRN ×2 (04:05→10:24)
[2023-01-27] MEDS: SODIUM CHLORIDE FLUSH 0.9% 10 ML SYRINGE IVP SCH ×2 (04:06→11:36)
[2023-01-27] MEDS: methocarbamoL 500 MG TABLET PO PRN ×2 (04:09→10:24)
[2023-01-27 07:26] VITALS: BP 121/65
[2023-01-27] MEDS: IBUPROFEN 600 MG TABLET PO SCH ×2 (07:45→12:11)
--- NOTE | 2023-01-27 08:09 | PROVIDER PROGRESS NOTE ---
Progress Note General Surgery Progress Note Jacques continues to do well. He is in good spirits. The air leak with change in position persists. The chest tube is well secured and functional. I contacted the Transfer Center at today and asked that if he can not be transferred soon that the Thoracic Surgeon (Dr. Goldsmith) contact me to determine whether out-patient management with a Heimlich valve until seen in the office would be appropriate. Feliberto Diaz MD General Surgery Service
--- NOTE | 2023-01-27 10:46 | XRAY Report ---
PROCEDURE: Chest 1 View X-Ray INDICATIONS: Placement of Heimlich valvefor right pneumothorax TECHNIQUE: One view of the chest was acquired. COMPARISON: 01/25/2023. FINDINGS: Surgical changes and devices: Right chest tube Lungs and pleura: No pleural effusions or pneumothorax. Lungs are clear. Mediastinum: Mediastinal contours appear normal. Heart size is normal. Bones and chest wall: No suspicious bony lesions. Overlying soft tissues appear unremarkable. IMPRESSION: Right chest tube in place with no evidence of pneumothorax. Reviewed by: Taj Erickson MD on 01/27/2023 10:45 AM PDT Approved by: Taj Erickson MD on 01/27/2023 10:45 AM PDT Station ID: [id number]
--- NOTE | 2023-01-27 10:58 | PROVIDER PROGRESS NOTE ---
Progress Note General Surgery Progress Note Discussed with patient the options for management. We decided to try the Heimlich valve which I placed today. CXR shows no evidence of pneumothorax and the valve is functioning normally. He was initially worried about going home with the valve but after he saw what it was and we checked the lung with a CXR, he is comfortable with discharge. He was instructed to protect the area and chest tube and to keep the area dry, use a gauze at the end of the valve to capture any drainage, and to expect a call from regarding a Monday appointment. If he has any trouble with the CT or valve at home he can either call or return to the ED for evaluation and management. Feliberto Diaz MD General Surgery Service
--- NOTE | 2023-01-27 11:06 | Discharge Plan ---
Discharge Plan Problem Reviewed?: Yes Disposition: Home, Self Care Condition: Good Prescriptions: oxyCODONE [Roxicodone] 5 mg PO Q4HR PRN #15 tab PRN Reason: Pain 5 to 7 methocarbamoL [Robaxin] 500 mg PO Q6HR PRN #60 tab PRN Reason: Spasms Ibuprofen [Motrin] 600 mg PO TIDWM #60 tab Diet: Regular Activity Restrictions: Protect chest tube Shower Restrictions: Yes (Keep chest tube dressing dry) Instruction Topics: ED Pneumothorax Spontaneous Additional Instructions or Follow Up instructions: Follow up with Dr. Remy Skaggs (Thoracic Surgery) on 01/30/23 You will receive a call from their clinic with the time of the appointment Clinic location: [address] [facility] 3rd Floor Keep the chest tube dressing dry. Change the gauze at the end of the valve if it becomes saturated with fluid Call or visit the [facility] ED if you have questions or concerns. Feliberto Diaz MD General Surgery Service No Smoking: If you smoke, Please STOP! Call for help. Follow-up with: ANUP CHEN, MSN, [employer] [Primary Care Provider] -
--- NOTE | 2023-01-30 18:26 | DISCHARGE SUMMARY ---
"Discharge Summary Admit Date: 01/24/23 Discharge Date: 01/27/23 Discharging Provider: Feliberto Diaz MD Code Status: Attempt Resuscitation Condition at Discharge: Good Discharge Disposition: 01 Home, Self Care - DIAGNOSES Admission Diagnoses: Recurrent right spontaneous pneumothorax with persistent air leak. Discharge Diagnoses with Status of Each Condition: Recurrent right spontaneous pneumothorax with air leak - HPI History of Present Illness: 42 male with sudden onset right chest pain and SOB similar to last month when he was admitted for a right spontaneous pneumothorax - CONSULTS | PROCEDURES Consultations: Thoracic Surgery [facility] Procedures: Right tube thoracostomy (32F) by ED MD - HOSPITAL COURSE Hospital Course: Despite right pleural catheter drainage and with wall suction increased to -30, he continued to demonstrate an air leak with position changes. The tube entry s ite and all connections were examined and found to be normal. A small apical pneumothorax persisted during his hospital stay. He was placed on a transfer queue to Thoracic Surgery without indication of impending transfer. We discussed the use of a Heimlich valce as an out-patient over the weekend with referral to Thoracic Surgery on Monday. He agreed, the Heimlich was placed, and a CXR revealed no increase in the size of the right poneumothorax. He was discharged to home with CT maintenance instructions as well as the knowledge that will contact him at home for the time of the Monday Thoraici Surgery appointment. He was advised to return to our ED if he had any trouble with the chest tube or any increase in SOB. - ALLERGIES Allergies/Adverse Reactions: Allergies Allergy/AdvReac Type Severity Reaction Status Date / Time No Known Drug Allergies Allergy Verified 01/24/23 10:09 - MEDICATIONS Home Medications: Ambulatory Orders Medication Instructions Recorded Confirmed metroNIDAZOLE 0.75% GEL [Flagyl 1 applic TOP DAILY 12/31/22 01/24/23 Gel] Acetaminophen [Tylenol] 2 tab PO Q6HR PRN 01/24/23 01/24/23 Ibuprofen [Motrin] 600 mg PO TIDWM #60 tab 01/27/23 methocarbamoL [Robaxin] 500 mg PO Q6HR PRN #60 tab 01/27/23 oxyCODONE [Roxicodone] 5 mg PO Q4HR PRN #15 tab 01/27/23 Home Medications Other | Comments: Tylenol 650 mg orally Q 6 hrs as needed - PHYSICAL EXAM AT DISCHARGE General Appearance: positive: No acute distress, Alert Eyes Bilateral: positive: Normal inspection ENT: positive: ENT inspection nml Respiratory: positive: No respiratory distress, Breath sounds nml, Other (Right 32 cambodian chest tube) Cardiovascular: positive: Regular rate & rhythm Peripheral Pulses: positive: 2+ Abdomen: positive: Non-tender Skin: positive: Color nml, No rash Extremities: positive: Non-tender - LABS Result Diagrams: 01/24/23 10:49 01/24/23 10:49 - SEPSIS Sepsis Criteria: WBC count greater than 12,000 or less than 4000 - QUALITY (Female Hip Fx Only) Was patient sent home on osteoporosis medication?: No - FOLLOW UP Follow Up: Dr. Remy Skaggs, Thoracic Surgery Service, on Monday - TIME SPENT Time Spent in Discharge (Minutes): 30"
== END 2023-01-27 13:55 | disposition home or self-care (01) | DRG 201 ==
LOC: ED 09:45 → MS2 12:39
PROVIDERS: ADMIT Surgery; ATTEND Surgery
PROC: 0W9930Z Drainage of Right Pleural Cavity with Drainage Device, Percutaneous Approach (ICD-10-PCS; principal; 2023-01-24)
DX: J93.11 Primary spontaneous pneumothorax (principal); M62.830 Muscle spasm of back; Z20.822 Contact with and (suspected) exposure to COVID-19
CPT/HCPCS: 32551; 36415; 71045; 80053; 82803; 83690; 85025; 85610; 87635; 93005; 96374; 96375; 99152; 99284; 99285; A9270; J1170; J7120; 94770

== ENCOUNTER 2023-03-26 12:17 | Emergency (ER) | payer BC ==
--- NOTE | 2023-03-26 12:47 | ED Physician Documentation ---
PD HPI DYSPNEA - Stated complaint Stated Complaint: LUMP IN THROAT,SOA - Chief complaint Chief Complaint: Resp - History obtained from History obtained from: Patient - History of Present Illness Timing - onset: Today Timing - onset during: Light activity Timing - duration: Hours Timing - details: Abrupt onset, Still present Inciting event(s): Other (golfing swing) Improved by: Rest Worsened by: Exertion Associated symptoms: Chest pain / discomfort Similar symptoms before: Diagnosis (pneumo thorax) Recently seen: Emergency Dept, Admitted, Surgery - Additional information Additional information: Lenard Smith is a 42-year-old active [employer] male who had a spontaneous pneumothorax in December which was treated with a small tube and he subsequently developed a recurrence of his pneumothorax in January of this year. This required a larger tube and admission into the hospital and after 3-1/2 days he was transferred to the [place] where pleurodesis was performed. Today he was out with his children swinging golf club when he had the sudden onset of some pain in his right chest wall and a feeling of a lump in his throat. He has had these symptoms previously with his pneumothorax. He became quite concerned with this and has come to the emergency room for evaluation. His pain is much more tolerated than it has been previously Review of Systems Constitutional: denies: Fever Ears: denies: Ear pain Nose: denies: Congestion Throat: denies: Sore throat Cardiac: reports: Chest pain / pressure. denies: Palpitations, Pedal edema, Calf pain Respiratory: denies: Dyspnea, Cough GI: denies: Abdominal Pain, Nausea, Vomiting, Constipation, Diarrhea : denies: Dysuria, Frequency PD PAST MEDICAL HISTORY - Past Medical History Cardiovascular: None Respiratory: None, Pneumonia, Other (COVID) Neuro: None, Peripheral neuropathy Endocrine/Autoimmune: None GI: None : None Psych: None Musculoskeletal: Other (Neuralgia of the right shoulder, needed PT to recover muscle function of the right) Derm: Rosacea - Past Surgical History Past Surgical History: No Ortho: Other (repair of traumatic finger injures) HEENT: Other Derm: Other (right biceps skin lesion removal) - Present Medications Home Medications: Ambulatory Orders Medication Instructions Recorded Confirmed metroNIDAZOLE 0.75% GEL [Flagyl 1 applic TOP DAILY 12/31/22 01/24/23 Gel] Acetaminophen [Tylenol] 2 tab PO Q6HR PRN 01/24/23 01/24/23 Ibuprofen [Motrin] 600 mg PO TIDWM #60 tab 01/27/23 methocarbamoL [Robaxin] 500 mg PO Q6HR PRN #60 tab 01/27/23 oxyCODONE [Roxicodone] 5 mg PO Q4HR PRN #15 tab 01/27/23 - Allergies Allergies/Adverse Reactions: Allergies Allergy/AdvReac Type Severity Reaction Status Date / Time No Known Drug Allergies Allergy Verified 01/24/23 10:09 - Social History Does the pt smoke?: No Smoking Status: Never smoker Does the pt have substance abuse?: No - Immunizations Immunizations are current?: No - POLST Patient has POLST: Yes POLST Status: Full Code PD ED PE NORMAL - Vitals Vital signs reviewed: Yes (hypertensive) - General General: Alert and oriented X 3, No acute distress, Well developed/nourished - HEENT HEENT: Atraumatic, PERRL, EOMI - Neck Neck: Supple, no meningeal sign, No bony TTP - Cardiac Cardiac: RRR, No murmur - Respiratory Respiratory: No respiratory distress, Clear bilaterally, Other (not chest wall tenderness no deviation of the trachea) - Abdomen Abdomen: Soft, Non tender - Back Back: No CVA TTP, No spinal TTP - Derm Derm: Normal color, Warm and dry, No rash - Extremities Extremities: No deformity, No edema - Neuro Neuro: Alert and oriented X 3, face hardener 2-12 intact, No motor deficit, No sensory deficit, Normal speech Eye Opening: Spontaneous Motor: Obeys Commands Verbal: Oriented GCS Score: 15 - Psych Psych: Normal mood, Normal affect Results - Vitals Vitals: Vital Signs - 24 hr 03/26/23 03/26/23 03/26/23 12:23 12:28 14:28 Temperature 36.8 C 36.8 C 36.6 C Heart Rate 74 74 60 Respiratory 18 18 16 Rate Blood Pressure 149/99 H 149/99 H 128/88 H O2 Saturation 95 95 98 Oxygen O2 Source Room air - Rads (name of study) CT chest Relevant Findings:: Prelim report reviewed (Impression: No significant pleural abnormality is seen. Negative for recurrent pneumothorax.), EMP independent interpretation of test, See rad report PD Medical Decision Making - ED course Complexity details: considered differential, d/w patient ED course: 42-year-old Jacques Smith has had recurrent pneumothoraces and he has had pleurodesis done last month. Today he was swinging a golf club when he had sudden onset of symptoms similar to what he is had previously with his pneumothorax but much less severe. He became quite concerned as he has been told he may have some issue with recurrence. Today we performed a CT scan of the chest to rule out even a small pneumothorax and found absolutely no problems. The patient was reassured and was quite happy. Departure - Departure Disposition: 01 Home, Self Care Clinical Impression: Chest wall pain Condition: Stable Instructions: ED Strain Chest Wall Follow-Up: ANUP CHEN, MSN, DISTRICT SAL[employer] COORDINATOR [Primary Care Provider] - Comments: Jacques, today it looks like there is no problem with recurrence of your pneumothorax. It looks like the pleurodesis has worked.
[2023-03-26 14:38] VITALS: BP 128/88; O2SAT 98
--- NOTE | 2023-03-26 14:51 | CT Report ---
PROCEDURE: CHEST WO INDICATIONS: Short of breath, chest pain s/p pleruodysis TECHNIQUE: Noncontrast 1mm axial images were acquired from the pulmonary apices to the posterior costophrenic an gles. Axial 5 mm soft tissue kernel reconstructions were performed as well as 8 mm axial MIP and cor onal and sagittal 5 mm reformations. For radiation dose reduction, the following was used: automate d exposure control, adjustment of mA and/or kV according to patient size. COMPARISON: 12/30/2022 FINDINGS: Image quality: Excellent. Lungs and pleura: No consolidation. No pleural effusions. No pneumothorax. No significant pleural ab normality is seen. No suspicious pulmonary nodules which require follow up. Mediastinum: Heart size is normal. No pericardial effusion. No large vessel abnormality. No mediastin al adenopathy by size criteria. Chest wall and lower neck: Thyroid is unremarkable. No axillary or supraclavicular adenopathy by size . Bones: No aggressive osseous abnormality. Upper Abdomen: Unremarkable. IMPRESSION: No significant pleural abnormality is seen. Negative for recurrent pneumothorax. Reviewed by: Femi Red MD on 03/26/2023 1:50 PM LISETTE Approved by: Femi Red MD on 03/26/2023 1:50 PM LISETTE Station ID: [id number]
== END 2023-03-26 15:15 | disposition home or self-care (01) ==
LOC: ED 12:17
DX: R07.89 Other chest pain (principal)
CPT/HCPCS: 99282; 99284

== ENCOUNTER 2023-03-26 18:01 | Outpatient (CLI) | payer BC | END 2023-03-26 18:02 | disposition critical access hospital (66) | LOC: EMS 18:01 | DX: T63.441A Toxic effect of venom of bees, accidental (unintentional), initial encounter (principal); R53.1 Weakness; R61 Generalized hyperhidrosis; R11.0 Nausea; H53.8 Other visual disturbances; R41.0 Disorientation, unspecified | CPT/HCPCS: A0425; A0427 ==

== ENCOUNTER 2023-03-26 18:25 | Emergency (ER) | payer BC ==
--- NOTE | 2023-03-26 18:34 | ED Physician Documentation ---
History of Present Illness - Stated complaint Stated Complaint: BEE STING - Additonal information Additional information: 42-year-old male presents emergency department via EMS for evaluation of an anaphylactic reaction to bee envenomation. He was running this evening when he was stung about 5:15 PM in the left side of the neck. He continued to jog for about 10 to 15 minutes when he began to feel nauseated, have some blurry vision and felt near syncopal. He called his who picked him up at the scene and EMS was summoned. On presentation they described him as being very pale and diaphoretic. Initial blood pressure was 82/50. EMS and administered epinephrine 0.3 mg at approximately 1745. They also administered Benadryl 50 mg at the same time. Subsequently the patient became more awake, responsive and his blood pressure improved. Seen earlier in the stay for right-sided chest tube. 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 He was transferred to [facility] in January where he had pleurodesis completed. While golfing today he felt a sharp pain in the right chest that was reminiscent of a previous pneumothorax. Seen and evaluated by my colleague earlier in the day had a CT of the chest completed which showed no significant abnormalities or recurrent pneumothorax. Review of Systems Constitutional: denies: Fever, Chills Throat: reports: Reviewed and negative Respiratory: reports: Reviewed and negative GI: reports: Nausea, Vomiting. denies: Constipation, Diarrhea : reports: Reviewed and negative Skin: reports: Reviewed and negative PD PAST MEDICAL HISTORY - Past Medical History Cardiovascular: None Respiratory: None, Pneumonia, Other (COVID) Neuro: None, Peripheral neuropathy Endocrine/Autoimmune: None GI: None : None Psych: None Musculoskeletal: Other (Neuralgia of the right shoulder, needed PT to recover muscle function of the right) Derm: Rosacea - Past Surgical History Past Surgical History: No Ortho: Other (repair of traumatic finger injures) HEENT: Other Derm: Other (right biceps skin lesion removal) - Present Medications Home Medications: Ambulatory Orders Medication Instructions Recorded Confirmed metroNIDAZOLE 0.75% GEL [Flagyl 1 applic TOP DAILY 12/31/22 01/24/23 Gel] Acetaminophen [Tylenol] 2 tab PO Q6HR PRN 01/24/23 01/24/23 Ibuprofen [Motrin] 600 mg PO TIDWM #60 tab 01/27/23 methocarbamoL [Robaxin] 500 mg PO Q6HR PRN #60 tab 01/27/23 oxyCODONE [Roxicodone] 5 mg PO Q4HR PRN #15 tab 01/27/23 EPINEPHrine [Epinephrine] 0.3 mg IJ ONCE PRN #1 each 03/26/23 - Allergies Allergies/Adverse Reactions: Allergies Allergy/AdvReac Type Severity Reaction Status Date / Time No Known Drug Allergies Allergy Verified 01/24/23 10:09 - Social History Does the pt smoke?: No Smoking Status: Never smoker Does the pt have substance abuse?: No - Immunizations Immunizations are current?: No - POLST Patient has POLST: Yes POLST Status: Full Code PD ED PE NORMAL - General General: Alert and oriented X 3, No acute distress, Well developed/nourished. No: Other (Mildly tremulous) - HEENT HEENT: Atraumatic, Moist mucous membranes, Pharynx benign, Other (No tongue lip or airway swelling. No trismus. 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 intact Eye Opening: Spontaneous Motor: Obeys Commands Verbal: Oriented GCS Score: 15 Results - Vitals Vitals: Vital Signs - 24 hr 03/26/23 03/26/23 03/26/23 18:35 19:00 19:30 Temperature 36.7 C Heart Rate 81 73 74 Respiratory 13 20 21 Rate Blood Pressure 133/74 H 127/66 127/75 O2 Saturation 100 100 100 03/26/23 03/26/23 03/26/23 20:00 20:25 20:30 Temperature Heart Rate 68 70 67 Respiratory 20 20 20 Rate Blood Pressure 119/68 121/71 116/71 O2 Saturation 98 98 97 03/26/23 03/26/23 20:50 21:53 Temperature Heart Rate 65 72 Respiratory 21 20 Rate Blood Pressure 119/68 105/49 L O2 Saturation 98 98 Oxygen O2 Source Room air - EKG (time done) 1856 EKG releavant findings:: EKG personally interpreted by author of this note. Relevant findings are: Rate: Rate (enter#) (66) Rhythm: NSR [place]: Normal Intervals: Normal [place] QRS: Normal Compare to prior EKG: Old EKG unavailable Computer interpretation: Agree with computer - Rads (name of study) cxr Relevant Findings:: Final report received (Normal single view chest, without recurrent pneumothorax seen.) PD Medical Decision Making - ED course Complexity details: reviewed results, re-evaluated patient, d/w patient ED course: 42-year-old male presents emergency department for evaluation of anaphylaxis reaction after a bee sting envenomation. Was running when he felt a sting on the back of his neck about 5:15 PM. He continued to jog for about 10 to 15 minutes when he began to feel very lightheaded and faint, have vision changes and felt as though his got a pass out. He called his on the phone who then summoned EMS to the scene. On presentation he was found to be lethargic and had initial blood pressure of 82/50. He was administered 50 mg of Benadryl IM as well as 0.3 mg of epinephrine intramuscularly. On reevaluation he had developed improved mentation, blood pressure and arrives to the emergency department hemodynamically stable. This is the first time the patient has had anaphylactic reaction to bee envenomation. pt requested a cxr secondary to mild SOB and hx of recurrent ptx. cxr without concerning findings. EKG was non ischemic. Pt will be observed in the ED for about 4 hours. Pending to redevelopment of anaphylaxis and he remains hemodynamically stable, he will be discharged home with an rx for epi pen. Departure - Departure Disposition: 01 Home, Self Care Clinical Impression: Bee sting-induced anaphylaxis Qualifiers: Encounter type: initial encounter Injury intent: accidental or unintentional Qualified Code(s): T63.441A - Toxic effect of venom of bees, accidental (unintentional), initial encounter Condition: Stable Record reviewed to determine appropriate education?: Yes Instructions: EpiPen Auto Injector Dc, ED Bite Sting Insect Gen Allergic React, ED Anaphylaxis General Prescriptions: EPINEPHrine [Epinephrine] 0.3 mg IJ ONCE PRN #1 each PRN Reason: Anaphylaxis Comments: Jacques you developed a type of reaction to the bee envenomation called anaphylaxis which is a cardiovascular collapse due to the bee sting. You should assume a lifetime allergy now to be envenomations that includes anaphylaxis. You need to carry an EpiPen with you at all times especially when outside and running. If you ever have another bee sting again, you should immediately inject yourself with epinephrine. It may be rucker to consider keeping epinephrine at home and on your person. In general over the next several days I recommend he take 25 mg of Benadryl orally twice daily as well as Pepcid 20 mg also twice daily. We did give you a single dose of Decadron today which is a steroid which should help with pain and inflammation over the next 3 days. If you are at home and you develop the similar symptoms as when you were running today, you have fainting episodes, chest pain, shortness of air or pale or diaphoretic immediately inject the epinephrine and return immediately to to the ER Forms: PCP List Discharge Date/Time: 03/26/23 21:54
[2023-03-26] MEDS ORDERED: DEXAMETHASONE 10 MG/ML VIAL PO STA (18:42)
[2023-03-26] MEDS ORDERED: CHERRY SYRUP 10 ML UDC PO ONE (18:42)
--- NOTE | 2023-03-26 18:50 | XRAY Report ---
PROCEDURE: Chest 1 View X-Ray INDICATIONS: chest pain TECHNIQUE: One view of the chest was acquired. COMPARISON: 01/27/2023. Correlation is made with the accompanying CT study. FINDINGS: Surgical changes and devices: None. Lungs and pleura: No pleural effusions or pneumothorax. Lungs are clear. Mediastinum: Mediastinal contours appear normal. Heart size is normal. Bones and chest wall: No suspicious bony lesions. Overlying soft tissues appear unremarkable. IMPRESSION: Normal single view chest, without recurrent pneumothorax seen. Reviewed by: Femi Red MD on 03/26/2023 5:49 PM LISETTE Approved by: Femi Red MD on 03/26/2023 5:49 PM LISETTE Station ID: [id number]
[2023-03-26 20:58] VITALS: O2SAT 98
--- NOTE | 2023-03-26 21:43 | ED Physician Documentation ---
ED Addendum - Addendum Addendum: 03/26/23 21:43 Signout from nurse brittny Smith approximately 9 PM pending 1 more hour of observation. He was reexamined at this time and feels well. Oropharynx appears normal and lungs are clear. Disposition: Discharged home Condition: Stable
[2023-03-26 21:59] VITALS: BP 105/49
== END 2023-03-26 21:54 | disposition home or self-care (01) ==
LOC: EDUNIT# → ED 18:25
DX: T63.441A Toxic effect of venom of bees, accidental (unintentional), initial encounter (principal); R07.89 Other chest pain
CPT/HCPCS: 71045; 71250; 93005; 99282; 99284; A9270

== ENCOUNTER 2023-10-27 08:49 | Emergency (ER) | payer BC ==
--- NOTE | 2023-10-27 09:58 | ED Physician Documentation ---
PD HPI URI - Stated complaint Stated Complaint: COUGH/CRACLING IN CHEST - Chief complaint Chief Complaint: Resp - History obtained from History obtained from: Patient - History of Present Illness Timing - onset: How many days ago (8) Timing duration: Days (8) Timing details: Gradual onset, Still present (has increased the past 2 days with more purulent sputum. Pain with coughing. Has had spontaneous PTX in the past right side with pleurodesis at . Concerned about the pain with cughing.) Associated symptoms: Productive cough, Chest pain, Dyspnea. No: Fever, NVD Contributing factors: Sick contact ( and child with URI and cough symptoms that lasted about 3-5 days padmaja re improving.) Improves by: No: Medication (has taken ibuprofen and some nyquil type med.) Worsened by: Activity Review of Systems Constitutional: denies: Fever, Chills Nose: reports: Congestion Throat: denies: Sore throat Cardiac: reports: Chest pain / pressure Respiratory: reports: Dyspnea, Cough PD PAST MEDICAL HISTORY - Past Medical History Past Medical History: Yes Cardiovascular: None Respiratory: None, Pneumonia, Other (penumothorax x 2 on right with pleurodesis at after 2nd episode. ) Neuro: None, Peripheral neuropathy Endocrine/Autoimmune: None GI: None : None Psych: None Musculoskeletal: Other Derm: Rosacea - Past Surgical History Past Surgical History: No Ortho: Other HEENT: Other Derm: Other - Present Medications Home Medications: Ambulatory Orders Medication Instructions Recorded Confirmed EPINEPHrine [Epinephrine] 0.3 mg IJ ONCE PRN #1 each 03/26/23 10/27/23 Albuterol Sulf [Ventolin Hfa 1 - 2 puffs INH Q4HR PRN #1 each 10/27/23 Inhaler] Amoxicillin 500 mg PO TID #18 cap 10/27/23 Benzonatate [Tessalon] 100 mg PO TID PRN #20 cap 10/27/23 - Allergies Allergies/Adverse Reactions: Allergies Allergy/AdvReac Type Severity Reaction Status Date / Time venom-wasp Allergy Anaphylaxis Verified 10/27/23 09:44 - Social History Does the pt smoke?: No Smoking Status: Never smoker Does the pt have substance abuse?: No - Immunizations Immunizations are current?: No - POLST Patient has POLST: Yes POLST Status: Full Code PD ED PE NORMAL - Vitals Vital signs reviewed: Yes - General General: Alert and oriented X 3, Well developed/nourished - HEENT HEENT: Ears normal, Pharynx benign - Neck Neck: Supple, no meningeal sign, No adenopathy - Cardiac Cardiac: RRR, No murmur - Respiratory Respiratory: No respiratory distress, Clear bilaterally - Abdomen Abdomen: Soft, Non tender - Derm Derm: Normal color, Warm and dry Results - Vitals Vitals: Oxygen O2 Source Room air - Rads (name of study) chest xray Relevant Findings:: Prelim report reviewed, EMP independent interpretation of test (o infiltrates effusions nor PTX. ) PD Medical Decision Making - ED course Complexity details: reviewed results, re-evaluated patient (he does feel a bit better breathing with MDI. ), considered differential (URI initially with perssistent and increasing cough with now sputum. Has had spontenous PTX int [facility] and is concerned about CP when coughing, chadd for eval rightly so. ), d/w patient Departure - Departure Disposition: 01 Home, Self Care Clinical Impression: Upper respiratory infection, Bronchitis Condition: Stable Instructions: ED Upper Resp Infec Abx Tx Follow-Up: ANUP CHEN, MSN, TRIMMER SAWYER [Primary Care Provider] - Prescriptions: Albuterol Sulf [Ventolin Hfa Inhaler] 1 - 2 puffs INH Q4HR PRN #1 each PRN Reason: Shortness Of Air/Wheezing Amoxicillin 500 mg PO TID #18 cap Benzonatate [Tessalon] 100 mg PO TID PRN #20 cap PRN Reason: Cough Comments: Your chest x-ray is good without any signs of pneumonia and no signs of pneumothorax. Your lungs are completely expanded and clear. By the duration of your symptoms and now progressing to some purulent sputum, concern would be a secondary bronchitis of bacterial atop the initial viral "chest cold". As such I would suggest using an albuterol inhaler 2 puffs 4 times daily to help improve airflow and expand the bronchioles. Also amoxicillin antibiotic 3 times a day as directed. Stay well-hydrated. You can add benzonatate if needed for cough. Tylenol if needed for pains etc. I sent your prescriptions to [facility] in [place] I would anticipate improvement over the next few days and resolved by 3 to 4 days. Forms: PCP List Discharge Date/Time: 10/27/23 11:45
[2023-10-27] MEDS: ALBUTEROL 1 PUFF INH STA (10:36)
--- NOTE | 2023-10-27 11:14 | XRAY Report ---
PROCEDURE: Chest 2V INDICATIONS: dyspnea/ cough TECHNIQUE: 2 views of the chest were acquired. COMPARISON: 03/26/2023 FINDINGS: Surgical changes and devices: None. Lungs and pleura: No consolidation or pleural effusion Mediastinum: Normal heart size Bones and chest wall: No suspicious finding IMPRESSION: No acute radiographic abnormality. Reviewed by: Vega Watts MD on 10/27/2023 11:13 AM PDT Approved by: Vega Watts MD on 10/27/2023 11:13 AM PDT Station ID: [id number]
[2023-10-27] MEDS: AMOXICILLIN 250 MG CAPSULE PO STA (11:33)
[2023-10-27] MEDS: BENZONATATE 100 MG CAPSULE PO STA (11:33)
[2023-10-27 11:55] VITALS: BP 119/82; O2SAT 96
== END 2023-10-27 11:45 | disposition home or self-care (01) ==
LOC: ED 08:49
DX: J40 Bronchitis, not specified as acute or chronic (principal)
CPT/HCPCS: 71046; 94640; 94664; 99283; 99284; A9270

== ENCOUNTER 2024-01-02 09:36 | Observation (INO) | payer BC ==
[2024-01-02 10:12] LABS: BASOPHILS % (AUTO) 0.8 %; EOSINOPHILS # (AUTO) 0.1 10^3/uL (0.0-0.7); EOSINOPHILS % (AUTO) 2.6 %; HCT - HEMATOCRIT 41.9 % (42.0-52.0); HGB - HEMOGLOBIN 13.7 g/dL (14.0-18.0); LYMPHOCYTES # (AUTO) 1.6 10^3/uL (1.5-3.5); LYMPHOCYTES % (AUTO) 31.5 %; MEAN CORPUSCULAR HEMOGLOBIN 30.4 pg (27.0-31.0); MEAN CORPUSCULAR HGB CONC 32.7 g/dL (32.0-36.0); MEAN CORPUSCULAR VOLUME 92.9 fL (80.0-94.0); MEAN PLATELET VOLUME 10.2 fL (7.4-11.4); MONOCYTES # (AUTO) 0.6 10^3/uL (0.0-1.0); NEUTROPHILS # (AUTO) 2.7 10^3/uL (1.5-6.6); NEUTROPHILS % (AUTO) 53.9 %; PLT - PLATELET COUNT 246 10^3/uL (130-450); RED BLOOD COUNT 4.51 10^6/uL (4.70-6.10); RED CELL DISTRIBUTION WIDTH 12.7 % (12.0-15.0); WHITE BLOOD COUNT 5.1 x10^3/uL (4.8-10.8)
[2024-01-02 10:21] LABS: ALBUMIN 4.8 g/dL (3.2-5.5); ALBUMIN/GLOBULIN RATIO 1.7 (1.0-2.2); BILIRUBIN,TOTAL 0.9 mg/dL (0.2-1.0); CALCIUM 9.7 mg/dL (8.5-10.3); CREATININE 1.1 mg/dL (0.6-1.3); TOTAL PROTEIN 7.6 g/dL (6.4-8.9)
--- NOTE | 2024-01-02 10:26 | ED Physician Documentation ---
PD HPI ABD PAIN - Stated complaint Stated Complaint: ABD PX - Chief complaint Chief Complaint: Abd Pain - History obtained from History obtained from: Patient - History of Present Illness Timing - onset: How many days ago (2) Timing - duration: Days (2) Timing - details: Gradual onset Pain level max: 5 Pain level now: 5 Quality: Pain Associated symptoms: No: Fever, Nausea, Vomiting, Hematemesis, Diarrhea, Constipation - Additional information Additional information: Patient is a 43-year-old male, otherwise healthy who states that he started to have generalized abdominal pain approximately 2 days ago, settled in the right lower quadrant yesterday and has worsened in intensity today. Went to the walk- in clinic and was sent here for possible appendicitis. Has not had anything to eat or drink today. No fevers. No vomiting. No diarrhea. Worse with movement, better with rest. Review of Systems Constitutional: denies: Fever, Chills GI: denies: Vomiting, Diarrhea, Hematemesis, Bloody / black stool : denies: Dysuria, Frequency, Hesitancy PD PAST MEDICAL HISTORY - Past Medical History Cardiovascular: None Respiratory: Pneumonia, Other Neuro: None, Peripheral neuropathy Endocrine/Autoimmune: None GI: None : None Psych: None Musculoskeletal: Other Derm: Rosacea Other Past Medical History: spontaneous pneumothorax - Past Surgical History Past Surgical History: No General: Other Ortho: Other HEENT: Other Derm: Other - Present Medications Home Medications: Ambulatory Orders Medication Instructions Recorded Confirmed EPINEPHrine [Epinephrine] 0.3 mg IJ ONCE PRN #1 each 03/26/23 01/02/24 - Allergies Allergies/Adverse Reactions: Allergies Allergy/AdvReac Type Severity Reaction Status Date / Time venom-wasp Allergy Anaphylaxis Verified 01/02/24 09:43 - Social History Does the pt smoke?: No Smoking Status: Never smoker Does the pt drink ETOH?: Yes ETOH Use: Beer Does the pt have substance abuse?: No - Immunizations Immunizations are current?: Yes - POLST Patient has POLST: No POLST Status: Full Code PD ED PE NORMAL - Vitals Vital signs reviewed: Yes - General General: Alert and oriented X 3, No acute distress - HEENT HEENT: Moist mucous membranes - Neck Neck: Supple, no meningeal sign - Cardiac Cardiac: RRR - Abdomen Abdomen: Other (Tender to palpation right lower quadrant McBurney's point. Positive Rovsing's, obturator and psoas signs. Positive heeltap. No rebound or guarding) - Back Back: No CVA TTP - Derm Derm: Warm and dry - Extremities Extremities: No edema - Neuro Neuro: Alert and oriented X 3 - Psych Psych: Normal mood, Normal affect Results - Vitals Vitals: Vital Signs - 24 hr 01/02/24 01/02/24 01/02/24 09:43 10:04 13:19 Temperature 36.3 C L 36.3 C L Heart Rate 65 56 L 53 L Respiratory 18 16 16 Rate Blood Pressure 135/74 H 145/87 H 131/71 H O2 Saturation 100 99 98 Oxygen O2 Source Room air - Labs Labs: Laboratory Tests 01/02/24 01/02/24 10:01 10:01 WBC 5.1 RBC 4.51 L Hgb 13.7 L Hct 41.9 L MCV 92.9 MCH 30.4 MCHC 32.7 RDW 12.7 Plt Count 246 MPV 10.2 Neut # (Auto) 2.7 Lymph # (Auto) 1.6 [place] # (Auto) 0.6 Eos # (Auto) 0.1 Baso # (Auto) 0.0 Absolute Nucleated RBC 0.00 Nucleated RBC % 0.0 Sodium 137 Potassium 4.0 Chloride 104 Carbon Dioxide 28 Anion Gap 5.0 L BUN 12 Creatinine 1.1 Estimated GFR (MDRD) 73 L Glucose 107 H Calcium 9.7 Total Bilirubin 0.9 AST 15 ALT 12 Alkaline Phosphatase 55 Total Protein 7.6 Albumin 4.8 Globulin 2.8 Albumin/Globulin Ratio 1.7 Lipase 21 - Rads (name of study) CT abdomen pelvis Relevant Findings:: Final report received, See rad report PD Medical Decision Making - ED course Complexity details: reviewed results, re-evaluated patient, considered differential, d/w patient, d/w applications sales consultant ED course: 43-year-old male with acute appendicitis on CT scan. Clinical exam is consistent with acute appendicitis as well. Discussed the case with Dr. Diaz, general surgery. Will plan for OR. Given IV Zosyn. IV fluids given. This document was made in part using voice recognition software. While efforts are made to proofread this document, sound alike and grammatical errors may occur. Departure - Departure Disposition: ED Transfer to [facility] Clinical Impression: Acute appendicitis Qualifiers: Acute appendicitis type: unspecified acute appendicitis type Qualified Code(s): K35.80 - Unspecified acute appendicitis Condition: Stable Forms: PCP List
[2024-01-02] MEDS ORDERED: iohexoL-300 100 ML VIAL ONE (10:33)
--- NOTE | 2024-01-02 12:13 | CT Report ---
PROCEDURE: Abdomen/Pelvis W INDICATIONS: RLQ abd pain CONTRAST: Omni 300 100ml TECHNIQUE: After the administration of intravenous contrast, a CT scan of the abdomen and pelvis was performed. Images were recorded and evaluated at appropriate window settings. Reformats: coronal and sagittal. F or radiation dose reduction, the following was used: automated exposure control, adjustment of mA and /or kV according to patient size. COMPARISON: None. FINDINGS: Image quality: Diagnostic. Lower chest: Unremarkable. Liver: No solid mass. Gallbladder: No radiopaque stones or wall thickening. Biliary tree: No intrahepatic or extrahepatic dilation, accounting for age. Spleen: No splenomegaly. Pancreas: No pancreatic ductal dilation. Adrenals: No adrenal nodule. Kidneys and ureters: No hydronephrosis. No renal cystic lesion which requires follow up. No solid mas s. Stomach, bowel and peritoneum: No gastric or small bowel dilation. No abnormal wall thickening. No pa thologic free fluid. Large fecal load in the cecum and right colon and terminal ileum. There is a dil ated tubular structure filled with fluid which is likely the appendix. It measures 8.7 mm. It may rep resent acute nonruptured appendicitis. Lymph nodes: No central or retroperitoneal adenopathy. Vessels: No infrarenal aortic aneurysm. Patent portal vein. PELVIS Reproductive organs: Unremarkable. Bladder: No abnormal wall thickening, accounting for underdistention. Pelvic lymph nodes: No pelvic adenopathy by size criteria. Bones: No aggressive osseous abnormality. Other: No significant ventral or inguinal hernia. IMPRESSION: 1. Findings suggest possible acute nonruptured appendicitis. 2. Large amount of fecal debris in the right colon as well as fecal debris in the terminal ileum. Fin dings are consistent with slow transit. Above discussed with Giovanni Peoples MD at the time of dictation on 01/02/2024 at 1210 hours. Patien t's clinical exam is consistent with acute appendicitis, despite a normal white count. Reviewed by: Taj Erickson MD on 01/02/2024 12:12 PM PDT Approved by: Taj Erickson MD on 01/02/2024 12:12 PM PDT Station ID: [id number]
[2024-01-02] MEDS ORDERED: SODIUM CHLORIDE FLUSH 0.9% 10 ML SYRINGE IVP PRN (12:39)
[2024-01-02] MEDS: PIPERACILLIN/TAZOBACTAM 3.375 GM in SODIUM CHLORIDE 0.9% MINIBAG 100 ML IV STA (12:43)
[2024-01-02] MEDS: SODIUM CHLORIDE 0.9% 1,000 ML IV STA (12:44)
--- NOTE | 2024-01-02 12:44 | HISTORY & PHYSICAL EXAMINATION ---
Chief Complaint - Chief Complaint Chief Complaint: Abdominal pain History of Present Illness - Admitted From Admitted From:: ED - History Obtained From History obtained from: Patient - History of Present Illness HPI Comment/Other: 43 male with 36 hours of periumbilical pain that has now migrated to the RLQ. He has had fevers and chills last night. He has been NPO since this morning because of anorexia. There has been no nausea or vomiting. History - Past Medical History Cardiovascular: reports: None (Right spontaneous pneumothiorax, s/p pleurodesis) Respiratory: reports: Pneumonia, Other Neuro: reports: None, Peripheral neuropathy Endocrine/Autoimmune: reports: None GI: reports: None : reports: None Psych: reports: None Musculoskeletal: reports: Other Derm: reports: Rosacea MRSA Hx?: No Other Past Medical History: spontaneous pneumothorax - Past Surgical History General: reports: Other Ortho: reports: Other Cardiovascular: reports: Other (Right pleurodesis for spontaneous right pneumothorax) HEENT: reports: Other Derm: reports: Other - Family & Social History Family History: Mother: Alive and Well, Father: Alive and Well Living arrangement: At home Living Situation: With family - Substance History Use: Uses substance without health or social issues: NONE - POLST Patient has POLST: No POLST Status: Full Code Meds/Allgy - Home Medications Home Medications: Ambulatory Orders Medication Instructions Recorded Confirmed EPINEPHrine [Epinephrine] 0.3 mg IJ ONCE PRN #1 each 03/26/23 01/02/24 - Allergies Allergies/Adverse Reactions: Allergies Allergy/AdvReac Type Severity Reaction Status Date / Time venom-wasp Allergy Anaphylaxis Verified 01/02/24 09:43 Review of Systems - Constitutional Constitutional: reports: Poor appetite, Diaphoresis, Night sweats - Gastrointestinal Gastrointestinal: reports: Abdominal pain Exam - Vital Signs Reviewed Vital Signs: Yes Vital Signs: Vital Signs x48h Temp Pulse Resp BP Pulse Ox 01/02/24 10:04 56 L 16 145/87 H 99 01/02/24 09:43 97.3 F L 65 18 135/74 H 100 - Physical Exam General Appearance: positive: Alert, Mild distress Eyes Bilateral: positive: Normal inspection, PERRL, EOMI ENT: positive: ENT inspection nml, Pharynx nml Neck: positive: Nml inspection, Thyroid nml, Trachea midline Respiratory: positive: Chest non-tender, No respiratory distress, Breath sounds nml Cardiovascular: positive: Regular rate & rhythm, No murmur Peripheral Pulses: positive: 2+ Abdomen: positive: Nml bowel sounds, Other (RLQ tenderness with referred rebound.) Skin: positive: Color nml, No rash, Warm Extremities: positive: Non-tender, Full ROM, Nml appearance Neurologic/Psychiatric: positive: Oriented x3 Conclusion/Plan - Lab Results Fish Bones: 01/02/24 10:01 01/02/24 10:01 - Diagnostic Imaging Results Diagnostic Imaging Results Comments: CT Abd/pelvis - dilated, inflamed appendix without conclusive evidence of rupture - Other Other Results/Comments: Assessment: 1) Acute appendicitis Plan: 1) IV fluids and antibiotics 2) Urgent surgical intervention Consent: Jacques has been counseled for the procedure (laparoscopic appendectomy, possible open appendectomy under GETA), it's indications, risks, benefits and expected outcome as well as alternative therapies. We specifically discussed risks associated with anesthesia, bleeding, infection, injury to surrounding structures which may require additional surgery, and the possible need for conversion to an open procedure. We also discussed the possible need for a blood transfusion with its risks and benefits. Jacques understands, agrees, and consents to the proposed operative strategy and requests that we proceed with the procedure as outlined in our discussion. Joe Diaz MD, [facility] General Surgery Service
[2024-01-02] MEDS ORDERED: LIDOCAINE 1%-EPI 1:100000 20 ML MDV ONE (13:02)
[2024-01-02] MEDS ORDERED: BUPIVACAINE 0.25% PF 30 ML VIAL ONE (13:02)
--- NOTE | 2024-01-02 13:11 | ANESTHESIA ---
Pre-Anesthesia VS, & Labs - Diagnosis acute appendicitis - Procedure laparoscopic appendectomy Vital Signs: Temp Pulse Resp BP Pulse Ox O2 Flow Rate 36.3 C L 56 L 16 145/87 H 99 01/02/24 09:43 01/02/24 10:04 01/02/24 10:04 01/02/24 10:04 01/02/24 10:04 Height: 6 ft Weight (kg): 86.636 kg Body Mass Index: 25.9 BMI Classification: Overweight - NPO >8 hours Last Fluid Intake: water sips @1000 - Lab Results Current Lab Results: Laboratory Tests 01/02/24 10:01: Sodium 137, Potassium 4.0, Chloride 104, Carbon Dioxide 28, Anion Gap 5.0 L, BUN 12, Creatinine 1.1, Estimated GFR (MDRD) 73 L, Glucose 107 H, Calcium 9.7, Total Bilirubin 0.9, AST 15, ALT 12, Alkaline Phosphatase 55, Total Protein 7.6, Albumin 4.8, Globulin 2.8, Albumin/Globulin Ratio 1.7, Lipase 21 01/02/24 10:01: WBC 5.1, RBC 4.51 L, Hgb 13.7 L, Hct 41.9 L, MCV 92.9, MCH 30.4, MCHC 32.7, RDW 12.7, Plt Count 246, MPV 10.2, Neut # (Auto) 2.7, Lymph # (Auto) 1.6, Brooke # (Auto) 0.6, Eos # (Auto) 0.1, Baso # (Auto) 0.0, Absolute Nucleated RBC 0.00, Nucleated RBC % 0.0 Fish Bones: 01/02/24 10:01 01/02/24 10:01 Home Medications and Allergies Active Medications Sodium Chloride (Normal Saline 0.9%) 1,000 mls @ 150 mls/hr IV .Q6H40M STA Stop: 01/02/24 18:40 Last Admin: 01/02/24 12:44 Dose: 150 mls/hr Lactated Ringer's (Lr) 1,000 mls @ 100 mls/hr IV .Q10H WENDY Sodium Chloride (Sodium Chloride Flush 0.9% 10 Ml Syringe) 10 ml IVP PRN PRN PRN Reason: NEEDED PER PROVIDER ORDERS Sodium Chloride (Sodium Chloride Flush 0.9% 10 Ml Syringe) 10 ml IVP 0100,0900,1700 [facility] Allergies/Adverse Reactions: Allergies Allergy/AdvReac Type Severity Reaction Status Date / Time venom-wasp Allergy Anaphylaxis Verified 01/02/24 09:43 Anes History & Medical History - Anesthetic History Anesthesia Complications: reports: No previous complications Family history of Anesthesia Complications: Denies Family history of Malignant Hyperthermia: Denies - Medical History Cardiovascular: reports: None (Right spontaneous pneumothiorax, s/p pleurodesis) Pulmonary: reports: Pneumonia, Other Gastrointestinal: reports: None, Other (current appendicitis) Urinary: reports: None Neuro: reports: None, Peripheral neuropathy Musculoskeletal: reports: Other Endocrine/Autoimmune: reports: None Blood Disorders: reports: None Skin: reports: Rosacea Smoking Status: Never smoker Psychosocial: reports: No issues indicated, Alcohol (social) History of Cancer?: No Other Past Medical History: spontaneous pneumothorax - Surgical History General: reports: Other Eyes Ears Nose Throat (EENT): reports: Other Cardiothoracic: reports: Other (Right pleurodesis for spontaneous right pneumothorax, chest tubes x 3) Orthopedic: reports: Other Dermatologic: reports: Other Exam General: Alert, Oriented x3, Cooperative Dental: WNL Mouth Opening: Greater than 4 Fingerbreadths Neck Mobility: Normal Mallampati classification: I Thyromental Distance: 4-6 cm Respiratory: Lungs clear, Normal breath sounds, No respiratory distress Cardiovascular: Regular rate Neurological: Normal speech Mental/Cognitive Status: Alert/Oriented X3, Normal for patient Cognitive Status: Within normal limits Plan Anesthesia Type: General Consent for Procedure(s) Verified and Reviewed: Yes Code Status: Attempt Resuscitation ASA classification: 2-Mild systemic disease Is this case an emergency?: Yes
[2024-01-02] MEDS ORDERED: ATROPINE ABBOJECT 1 MG/10 ML SYRINGE IVP PRN ×2 (13:20→15:35)
[2024-01-02] MEDS ORDERED: MORPHINE 2 MG/ML CARPUJECT IVP PRN ×2 (13:20→15:35)
[2024-01-02] MEDS ORDERED: DEXAMETHASONE 4 MG/ML VIAL ONE (13:20)
[2024-01-02] MEDS ORDERED: MIDAZOLAM 2 MG/2 ML VIAL ONE (13:20)
[2024-01-02] MEDS ORDERED: fentaNYL 100 MCG/2 ML VIAL IVP PRN ×2 (13:20→15:35)
[2024-01-02] MEDS ORDERED: ePHEDrine 50 MG/ML VIAL IVP PRN ×2 (13:20→15:35)
[2024-01-02] MEDS ORDERED: ROCURONIUM 50 MG/5 ML VIAL ONE (13:20)
[2024-01-02] MEDS ORDERED: NALOXONE 0.4 MG/ML VIAL IVP PRN ×2 (13:20→15:35)
[2024-01-02] MEDS ORDERED: METOCLOPRAMIDE 10 MG/2 ML VIAL IVP PRN ×2 (13:20→15:35)
[2024-01-02] MEDS ORDERED: ONDANSETRON 4 MG/2 ML VIAL IVP PRN ×3 (13:20→15:35)
[2024-01-02 13:27] LABS: BILIRUBIN,URINE NEGATIVE (NEGATIVE); GLUCOSE, URINE (UA) NEGATIVE (NEGATIVE); KETONES,URINE (UA) NEGATIVE (NEGATIVE); LEUKOCYTE ESTERASE, URINE NEGATIVE (NEGATIVE); NITRITE,URINE NEGATIVE (NEGATIVE); OCCULT BLOOD,URINE NEGATIVE (NEGATIVE); PROTEIN,URINE NEGATIVE (NEGATIVE); UROBILINOGEN,URINE 0.2 (NORMAL) E.U./dL (NORMAL)
[2024-01-02 13:28] LABS: CLARITY,URINE CLEAR (CLEAR)
[2024-01-02] MEDS ORDERED: PROPOFOL 500 MG/50 ML 500 MG/50 ML VIAL ONE (13:31)
[2024-01-02] MEDS ORDERED: LACTATED RINGERS 1,000 ML IV SCH ×2 (14:00→16:00)
[2024-01-02] MEDS ORDERED: ACETAMINOPHEN 1,000 MG/100 ML 1,000 MG/100 ML BAG IV ONE (14:12)
[2024-01-02] MEDS ORDERED: SUGAMMADEX 200 MG/2 ML VIAL IVP ONE (14:32)
[2024-01-02] MEDS ORDERED: KETOROLAC 30 MG/ML VIAL ONE (14:33)
[2024-01-02] MEDS ORDERED: HYDROmorphone 1 MG/ML CARPUJECT ONE (14:35)
[2024-01-02] MEDS: iohexoL-300 100 ML VIAL IVP ONE (14:46)
[2024-01-02] MEDS: LIDOCAINE 1%-EPI 1:100000 50 ML VIAL SUBQ ONE (14:50)
[2024-01-02] MEDS: BUPIVACAINE 0.25% PF 30 ML VIAL SUBQ ONE (14:50)
--- NOTE | 2024-01-02 14:55 | OPERATIVE REPORT ---
Operative Report - General Admit Date: 01/02/24 - Other Other Information/Narrative: PROCEDURE DATE: 01/02/24 PREOPERATIVE DIAGNOSIS: Jacques is a 43 year old male who has clinical, CT, and laboratory findings consistent with acute appendicitis. Jacques is being taken to the operating room for laparoscopic appendectomy, possible open appendectomy. POSTOPERATIVE DIAGNOSIS: Acute appendicitis NAME OF PROCEDURE: Laparoscopic appendectomy SURGEON: Joe Diaz MD, FACS [employer]SEMBLER: [employer] ANESTHESIA: General endotracheal. ESTIMATED BLOOD LOSS: 3 mL. DRAINS: None SPECIMEN: Appendix COMPLICATIONS None FINDINGS: Inflammation of the body and tip of the appendix. No gangrene or evidence of rupture DESCRIPTION OF OPERATION: After consent for the procedure was obtained, the patient was brought to the operating room where in the supine position, general endotracheal anesthesia was administered. A surgical time-out was performed, indicating the patient and the procedure to be performed. The abdomen was prepped with alcohol-free chloroprep and draped in a sterile fashion. The subcutaneous tissue of each of the planned port sites was infiltrated with 1% Lidocaine with epinephrine in a 50/50 mix with 1/4 % Marcaine mixture. Pneumoperitoneum was achieved through a subumbilical incision using a Darinel cannula and an open technique. Under direct vision, a 5 mm muscle splitting, non-cutting port was placed in the right lower quadrant and an 12 mm muscle splitting, non-cutting port was placed in the left lower quadrant. Inspection revealed the above noted findings. Placing the patient in Trendelenburg position slightly rolled to the left allowed mobilization of the right colon medially and visualization of the appendix. The appendix was then identified, gently grasped with a ratcheted grasper and retracted superiorly and anteriorly. I then transected the mesoappendix with a harmonic scalpel and found healthy tissue at the base of the appendix. The base of the appendix was stapled and transected flush with the cecum using an Endo- [place] stapling device using gastrointestinal eligio. The appendix was then brought out through the left lower quadrant port site incision using an EndoCatch device. Reinspection of the right lower quadrant revealed no evidence of bleeding or leakage from the previous dissection site. The right lower quadrant was irrigated with warm sterile saline. The irrigant was aspirated. A search was made for sponges, packs, instruments, and needles. None were found. The sponge, pack, instrument, and needle counts were relayed to me as being correct. The left lower quadrant port site was closed with a 2-0 Vicryl under direct vision using an endo-close device. The pneumoperitoneum then was released. There was no evidence of bleeding from the laparoscopic port sleeve sites upon release of the pneumoperitoneum. The subumbilical incision was closed with 2-0 Vicryl for the linea alba. The skin of each of the port sites was closed with interrupted 4-0 Monocryl in a subcuticular fashion with Steri-Strips to reinforce the epidermis. Dressings were placed. The patient tolerated the procedure well and was brought to the recovery room with stable vital signs.
[2024-01-02] MEDS: LACTATED RINGERS 1,000 ML IV ONE (14:57)
--- NOTE | 2024-01-02 15:09 | Discharge Plan ---
Discharge Plan Problem Reviewed?: Yes Disposition: Home, Self Care Condition: Good Prescriptions: oxyCODONE [Roxicodone] 5 mg PO Q4HR PRN #3 tab PRN Reason: Severe Pain (Level 7-10) Diet: Regular Activity Restrictions: Activity as Tolerated Shower Restrictions: No (Start Tomorrow) Weight Bearing: Full Weight Instruction Topics: Appendectomy Laparoscopic Dc Additional Instructions or Follow Up instructions: General Surgery Clinic. Our office will contact you. Call them at [phone] with questions or concerns No Smoking: If you smoke, Please STOP! Call for help. Follow-up with: ANUP CHEN, MSN, [facility] [Primary Care Provider] -
[2024-01-02] MEDS ORDERED: HYDROmorphone 0.5 MG/0.5 ML SYRINGE ONE (15:19)
[2024-01-02] MEDS: HYDROmorphone 0.5 MG/0.5 ML SYRINGE IVP PRN ×2 (15:20→16:35)
[2024-01-02] MEDS ORDERED: HYDROmorphone 0.5 MG/0.5 ML SYRINGE IVP PRN (15:35)
[2024-01-02] MEDS ORDERED: oxyCODONE 5 MG TABLET ONE (16:03)
[2024-01-02] MEDS: oxyCODONE 5 MG TABLET PO PRN (16:04)
[2024-01-02 16:11] VITALS: BP 127/84; O2SAT 98
[2024-01-02] MEDS: LACTATED RINGERS 1,000 ML IV SCH (16:35)
[2024-01-02] MEDS ORDERED: SODIUM CHLORIDE FLUSH 0.9% 10 ML SYRINGE IVP SCH (17:00)
--- NOTE | 2024-01-02 18:49 | ANESTHESIA POST OP EVALUATION ---
Anesthesia Post Eval - Post Anesthesia Eval Vitals: Last Vital Signs Temp 36.6 C 01/02/24 15:39 Pulse 51 L 01/02/24 16:06 Resp 14 01/02/24 16:06 BP 127/84 H 01/02/24 16:06 Pulse Ox 98 01/02/24 16:06 O2 Flow Rate CV Function Including HR & BP: Stable Pain Control: Satisfactory Nausea & Vomiting: Negative Mental Status: Baseline Respiratory Status: Airway Patent Hydration Status: Satisfactory Anesthesia Complications: None
--- NOTE | 2024-01-08 18:51 | DISCHARGE SUMMARY ---
"Discharge Summary Admit Date: 01/02/24 Discharge Date: 01/02/24 Discharging Provider: Joe Code Status: Attempt Resuscitation Condition at Discharge: Good Discharge Disposition: 01 Home, Self Care - DIAGNOSES Admission Diagnoses: Acute appendicitis Discharge Diagnoses with Status of Each Condition: Acute appendicitis - resolved - HPI History of Present Illness: 43 yom admitted with clinical, lab, and image findings consistent with acute appendicitis - CONSULTS | PROCEDURES Consultations: None Procedures: 01/02/24 - Laparoscopic appendectomy - HOSPITAL COURSE Hospital Course: Uncomplicated. At time of discharge the patient was tolerating a diet, was ambulatory and his discomfort was controlled with oral non-narcotic medications. His port sites were clean and dry. - ALLERGIES Allergies/Adverse Reactions: Allergies Allergy/AdvReac Type Severity Reaction Status Date / Time venom-wasp Allergy Anaphylaxis Verified 01/02/24 09:43 - MEDICATIONS Home Medications: Ambulatory Orders Medication Instructions Recorded Confirmed EPINEPHrine [Epinephrine] 0.3 mg IJ ONCE PRN #1 each 03/26/23 01/02/24 oxyCODONE [Roxicodone] 5 mg PO Q4HR PRN #3 tab 01/02/24 - PHYSICAL EXAM AT DISCHARGE General Appearance: positive: No acute distress, Alert Eyes Bilateral: positive: Normal inspection, PERRL ENT: positive: ENT inspection nml, Pharynx nml Neck: positive: Nml inspection, Thyroid nml, Trachea midline Respiratory: positive: Chest non-tender, No respiratory distress, Breath sounds nml Cardiovascular: positive: Regular rate & rhythm Peripheral Pulses: positive: 2+ Abdomen: positive: Non-tender, No distention, Other (Port sites clean and dry) Skin: positive: Color nml Extremities: positive: Non-tender, Full ROM, Nml appearance Neurologic/Psychiatric: positive: Oriented x3 - LABS Result Diagrams: 01/02/24 10:01 01/02/24 10:01 - DIAGNOSTIC IMAGING Diagnostic Imaging Results: See rad report - FOLLOW UP Follow Up: FU surgery clinic in 7-10 days - TIME SPENT Time Spent in Discharge (Minutes): 30"
== END 2024-01-02 17:45 | disposition home or self-care (01) ==
LOC: ED 09:36 → MS3 12:39
PROVIDERS: ADMIT Surgery; ATTEND Surgery
PROC: 0DTJ4ZZ Resection of Appendix, Percutaneous Endoscopic Approach (ICD-10-PCS; principal; 2024-01-02 14:30)
DX: K35.80 Unspecified acute appendicitis (principal)
CPT/HCPCS: 36415; 44970; 74177; 80053; 81003; 83690; 85025; 96365; 99284; 99285; A9270; J0131; J1170; J3490; J7120; Q9967; 81001; 87086